=== PATIENT | male | born 1995 | race Caucasian/White ===

== ENCOUNTER → 2017-03-30 | Outpatient (CLI) | payer MEDICARE, OTHER ==
[2017-03-30 20:54] LABS: Gliadin AB IgA, Deaminated POSITIVE (NEGATIVE); Gliadin AB IgG, Deaminated POSITIVE (NEGATIVE); Gliadin AB IgG, Unit 67.8 U/mL; Tis Transglutaminase IgA Unit >250.0 AI; Tis Transglutaminase IgG Unit 0.9 U/mL
== END | disposition home or self-care (01) ==
LOC: LABWHC1 12:28
PROVIDERS: ATTEND Physician Assistant
DX: K90.0 Celiac disease (principal)
CPT/HCPCS: 36415; 83516

== ENCOUNTER 2017-06-19 07:20 | Emergency (ER) | payer MEDICARE, OTHER ==
[2017-06-19 07:26] VITALS: TEMP 97.6
[2017-06-19] MEDS ORDERED: ORPHENADRINE 30 MG/ML 2 ML VIAL IVP STA (07:53)
[2017-06-19] MEDS ORDERED: KETOROLAC 30 MG/ML 1 ML VIAL IVP STA (07:53)
--- NOTE | 2017-06-19 08:07 | ED ---
Fall HPI - General Chief Complaint: Fall Stated Complaint: Fell back/hip pain-[facility] Time Seen by Provider: 06/19/17 07:35 Source: patient Mode of arrival: wheelchair - History of Present Illness Initial Comments: This is a 22-year-old male with a benign history who slipped and fell at work around 6:30 AM this morning he states he landed on his left buttock area he complains of low back pain especially on the left side he states is 7/10 severity somewhat sharp in nature. He denies a loss of function however to his lower extremities no urinary or fecal incontinence. No prior back pain or injury. Complaint: fall - Related Data Previous Rx's Medication Instructions Recorded Cyclobenzaprine [Flexeril] 10 mg PO TID #14 tab 06/19/17 Ibuprofen 800 mg PO Q6HR PRN #20 tablet 06/19/17 Allergies Allergy/AdvReac Type Severity Reaction Status Date / Time No Known Allergies Allergy Verified 06/19/17 08:00 Review of Systems ROS Statement: Those systems with pertinent positive or pertinent negative responses have been documented in the HPI. ROS Other: All systems not noted in ROS Statement are negative. Past Medical History Past Medical History: No Reported History History of Any Multi-Drug Resistant Organisms: None Reported Past Surgical History: Orthopedic Surgery Additional Past Surgical History / Comment(s): rt knee surgery Past Psychological History: Anxiety, Depression Smoking Status: Never smoker Past Alcohol Use History: None Reported Past Drug Use History: None Reported General Exam - General Exam Comments Initial Comments: This is a well-developed well-nourished awake alert oriented 3 male Limitations: no limitations General appearance: alert, anxious, in distress Head exam: Present: atraumatic Eye exam: Present: normal appearance, PERRL, EOMI. Absent: scleral icterus, conjunctival injection, periorbital swelling ENT exam: Present: normal exam, mucous membranes moist Neck exam: Present: normal inspection. Absent: tenderness, meningismus, lymphadenopathy Respiratory exam: Present: normal lung sounds bilaterally. Absent: respiratory distress, wheezes, rales, rhonchi, stridor Cardiovascular Exam: Present: regular rate, normal rhythm, normal heart sounds. Absent: systolic murmur, diastolic murmur, rubs, gallop, clicks GI/Abdominal exam: Present: soft, normal bowel sounds. Absent: distended, tenderness, guarding, rebound, rigid Extremities exam: Present: normal inspection, full ROM Back exam: Present: normal inspection, tenderness, muscle spasm, paraspinal tenderness. Absent: full ROM, CVA tenderness (R), CVA tenderness (L), vertebral tenderness Neurological exam: Present: alert, oriented X3, CN II-XII intact Psychiatric exam: Present: normal affect, normal mood Skin exam: Present: warm, dry, intact, normal color. Absent: rash Course Vital Signs 06/19/17 07:24 Temperature 97.6 F Pulse Rate 83 Respiratory 20 Rate Blood Pressure 130/76 O2 Sat by Pulse 100 Oximetry Medical Decision Making - Medical Decision Making I did a long discussion with patient regarding findings he is getting some improvement thus far the patient will be placed on appropriate medication. Given O for work today he is to be on limited lifting for 2 days. He is follow- up with his doctor and return when necessary - Radiology Data Radiology results: report reviewed (I did review the imaging and reports no acute findings.), image reviewed Disposition Clinical Impression: Fall, Lumbar strain Disposition: HOME SELF-CARE Condition: Good Instructions: Low Back Strain (ED) Prescriptions: Cyclobenzaprine [Flexeril] 10 mg PO TID #14 tab Ibuprofen 800 mg PO Q6HR PRN #20 tablet PRN Reason: Pain Referrals: Katarina Osuna MD [Primary Care Provider] - 1-2 days
--- NOTE | 2017-06-19 08:37 | XR ---
Lumbosacral spine HISTORY: Trauma and pain 5 views of the lumbosacral spine correlated to prior exam 03/31/2013 The exam is stable. Bone mineralization, disc spaces and alignment are stable. No spondylolysis. IMPRESSION: No acute fracture or subluxation.
[2017-06-19 09:20] VITALS: BP 119/65; PULSE 75; RESP 16
== END 2017-06-19 09:19 | disposition home or self-care (01) ==
LOC: EC 07:20
DX: S39.012A Strain of muscle, fascia and tendon of lower back, initial encounter (principal); W01.0XXA Fall on same level from slipping, tripping and stumbling without subsequent striking against object, initial encounter; Y99.0 Civilian activity done for income or pay; Y93.89 Activity, other specified; Y92.69 Other specified industrial and construction area as the place of occurrence of the external cause
CPT/HCPCS: 72110; 99283; 96374; 96375; J2360; J1885

== ENCOUNTER → 2017-06-21 | Outpatient (CLI) | payer OTHER ==
--- NOTE | 2017-06-21 12:20 | XR ---
EXAMINATION TYPE: XR thoracic spine complete DATE OF EXAM: 06/21/2017 COMPARISON: 03/31/2013 HISTORY: 22-year-old male mid back pain since fall 2 days ago, contusion of back wall. TECHNIQUE: 3 views FINDINGS: 12 rib-bearing thoracic vertebral bodies. All pedicles are visualized. There is mild degenerative dis c interspace narrowing along the upper third thoracic spine. Small endplate Schmorl's node involving the superior endplate of the vertebral body, probably L1. This is unchanged. Vertebral body heights a re maintained and alignment is preserved. IMPRESSION: There is mild degenerative disc disease in the upper third thoracic spine. No vertebral compression c ollapse or malalignment.
== END ==
LOC: RADXRMAIN 12:00
PROVIDERS: ATTEND Emergency Medicine
DX: M51.34 Other intervertebral disc degeneration, thoracic region (principal)
CPT/HCPCS: 72072

== ENCOUNTER → 2017-07-03 | Outpatient (CLI) | payer MEDICARE, OTHER ==
[2017-07-03 11:16] LABS: ALT 45 U/L (21-72); AST 31 U/L (17-59); Albumin 4.8 g/dL (3.5-5.0); Alkaline Phosphatase 55 U/L (38-126); Anion Gap 10 mmol/L; Blood Urea Nitrogen 13 mg/dL (9-20); Calcium 9.7 mg/dL (8.4-10.2); Carbon Dioxide 26 mmol/L (22-30); Chloride 106 mmol/L (98-107); Glucose 95 mg/dL (74-99); Potassium 4.7 mmol/L (3.5-5.1); Sodium 142 mmol/L (137-145); Total Bilirubin 0.6 mg/dL (0.2-1.3); Total Protein 7.5 g/dL (6.3-8.2)
[2017-07-03 11:51] LABS: Basophils # (A) 0.1 k/uL (0-0.2); Basophils % (A) 1 %; Eosinophils # (A) 0.3 k/uL (0-0.7); Eosinophils % (A) 4 %; HCT 51.3 % (39.0-53.0); HGB 17.1 gm/dL (13.0-17.5); Lymphocytes # (A) 1.3 k/uL (1.0-4.8); Lymphocytes % (A) 18 %; MCHC 33.3 g/dL (31.0-37.0); MCV 90.4 fL (80.0-100.0); Mean Platelet Volume 8.5; Monocytes # (A) 0.5 k/uL (0-1.0); Monocytes % (A) 6 %; Neutrophils # (A) 5.2 k/uL (1.3-7.7); Neutrophils % (A) 70 %; Platelet Count 139 k/uL (150-450); RBC 5.68 m/uL (4.30-5.90); RDW 13.9 % (11.5-15.5); WBC 7.5 k/uL (3.8-10.6)
[2017-07-03 16:31] LABS: Gliadin AB IgA, Unit 37.7 U/mL
== END | disposition home or self-care (01) ==
LOC: LABWHC1 10:34
PROVIDERS: ATTEND Physician Assistant
DX: K90.0 Celiac disease (principal)
CPT/HCPCS: 36415; 80053; 83516; 85025

== ENCOUNTER → 2018-08-05 | Outpatient (CLI) | payer MEDICARE, OTHER ==
[2018-08-05 13:56] LABS: Basophils # (A) 0.1 k/uL (0-0.2); Basophils % (A) 1 %; Eosinophils # (A) 0.2 k/uL (0-0.7); Eosinophils % (A) 4 %; HCT 48.9 % (39.0-53.0); HGB 16.6 gm/dL (13.0-17.5); Lymphocytes # (A) 1.8 k/uL (1.0-4.8); Lymphocytes % (A) 27 %; MCH 30.5 pg (25.0-35.0); MCHC 33.9 g/dL (31.0-37.0); MCV 89.9 fL (80.0-100.0); Monocytes # (A) 0.3 k/uL (0-1.0); Monocytes % (A) 5 %; Neutrophils # (A) 4.1 k/uL (1.3-7.7); Neutrophils % (A) 62 %; Platelet Count 259 k/uL (150-450); RBC 5.44 m/uL (4.30-5.90); RDW 12.8 % (11.5-15.5); WBC 6.6 k/uL (3.8-10.6)
[2018-08-05 21:32] LABS: Gliadin AB IgA, Unit 17.5 U/mL
[2018-08-05 22:06] LABS: Albumin 4.9 g/dL (3.80-4.90); Albumin/Globulin Ratio 2.04 (1.60-3.17); Anion Gap 8.9 mmol/L (4.00-12.00); Calcium 9.8 mg/dL (8.7-10.3); Carbon Dioxide 25.1 mmol/L (21.6-31.8); Globulin 2.4 g/dL (1.6-3.3); Potassium 4.5 mmol/L (3.5-5.5); Total Bilirubin 0.7 mg/dL (0.3-1.2); Total Protein 7.3 g/dL (6.2-8.2)
== END | disposition home or self-care (01) ==
LOC: LABWHC1 12:56
PROVIDERS: ATTEND Physician Assistant
DX: K90.0 Celiac disease (principal)
CPT/HCPCS: 36415; 80053; 83516; 85025

== ENCOUNTER → 2018-11-04 | Outpatient (CLI) | payer MEDICARE, OTHER ==
[2018-11-04 11:27] LABS: Basophils # (A) 0.1 k/uL (0-0.2); Basophils % (A) 1 %; Eosinophils # (A) 0.3 k/uL (0-0.7); Eosinophils % (A) 4 %; HCT 55.2 % (39.0-53.0); HGB 18.5 gm/dL (13.0-17.5); Lymphocytes # (A) 1.6 k/uL (1.0-4.8); Lymphocytes % (A) 21 %; MCH 30.4 pg (25.0-35.0); MCHC 33.6 g/dL (31.0-37.0); MCV 90.5 fL (80.0-100.0); Monocytes # (A) 0.4 k/uL (0-1.0); Monocytes % (A) 6 %; Neutrophils # (A) 5.2 k/uL (1.3-7.7); Neutrophils % (A) 68 %; Platelet Count 192 k/uL (150-450); WBC 7.8 k/uL (3.8-10.6)
[2018-11-04 16:11] LABS: Albumin 3.6 g/dL (3.80-4.90); Albumin/Globulin Ratio 2.4 (1.60-3.17); Anion Gap 4.2 mmol/L (4.00-12.00); Calcium 8.2 mg/dL (8.7-10.3); Carbon Dioxide 29.8 mmol/L (21.6-31.8); Globulin 1.5 g/dL (1.6-3.3); Total Bilirubin 0.6 mg/dL (0.2-1.2); Total Protein 5.1 g/dL (6.2-8.2)
== END | disposition home or self-care (01) ==
LOC: LABWHC1 11:00
PROVIDERS: ATTEND Physician Assistant
DX: K90.0 Celiac disease (principal)
CPT/HCPCS: 36415; 80053; 83516; 85025

== ENCOUNTER → 2019-04-08 | Outpatient (CLI) | payer MEDICARE, OTHER ==
[2019-04-08 14:18] LABS: Basophils # (A) 0.1 k/uL (0-0.2); Basophils % (A) 1 %; Eosinophils # (A) 0.3 k/uL (0-0.7); Eosinophils % (A) 4 %; HCT 45.6 % (39.0-53.0); HGB 15.6 gm/dL (13.0-17.5); Lymphocytes # (A) 1.4 k/uL (1.0-4.8); Lymphocytes % (A) 23 %; MCH 30.7 pg (25.0-35.0); MCHC 34.1 g/dL (31.0-37.0); Mean Platelet Volume 6.1; Monocytes # (A) 0.3 k/uL (0-1.0); Monocytes % (A) 6 %; Neutrophils % (A) 65 %; Platelet Count 207 k/uL (150-450); RBC 5.07 m/uL (4.30-5.90); RDW 12.3 % (11.5-15.5); WBC 6.2 k/uL (3.8-10.6)
[2019-04-08 18:50] LABS: T3, Uptake 30 % (23-37)
[2019-04-08 18:57] LABS: African American GFR (CKD) 143.9 (60.0-200.0); Albumin 4.8 g/dL (3.80-4.90); Albumin/Globulin Ratio 2.4 (1.60-3.17); Anion Gap 5.4 mmol/L (4.00-12.00); BUN/Creat Ratio 13.75 Ratio (12.00-20.00); Bilirubin, Conjugated 0.2 mg/dL (0.20-0.40); Bilirubin,Unconjugated 0.4 mg/dL; Calcium 9.8 mg/dL (8.7-10.3); Carbon Dioxide 28.6 mmol/L (21.6-31.8); Potassium 4.1 mmol/L (3.5-5.5); Total Bilirubin 0.6 mg/dL (0.3-1.2); Total Protein 6.8 g/dL (6.2-8.2)
[2019-04-08 20:02] LABS: Gliadin AB IgA, Deaminated POSITIVE (NEGATIVE)
[2019-04-08 20:03] LABS: Gliadin AB IgG, Deaminated NEGATIVE (NEGATIVE)
[2019-04-08 20:54] LABS: Hemoglobin A1C 4.8 % (4.0-6.0)
== END | disposition home or self-care (01) ==
LOC: LABWHC1 13:16
PROVIDERS: ATTEND Clinical Nurse Specialist Psychiatric/Mental Health
DX: K90.0 Celiac disease (principal); F32.9 Major depressive disorder, single episode, unspecified
CPT/HCPCS: 36415; 80053; 82248; 82306; 83036; 83516; 84439; 84443; 84479; 85025

== ENCOUNTER → 2020-04-23 | Outpatient (CLI) | payer MEDICARE, OTHER ==
[2020-04-23 14:51] LABS: Basophils # (A) 0.1 k/uL (0-0.2); Basophils % (A) 1 %; Eosinophils # (A) 0.2 k/uL (0-0.7); Eosinophils % (A) 3 %; HCT 50.9 % (39.0-53.0); HGB 16.8 gm/dL (13.0-17.5); Lymphocytes # (A) 1.7 k/uL (1.0-4.8); Lymphocytes % (A) 26 %; MCH 30.8 pg (25.0-35.0); MCV 93.3 fL (80.0-100.0); Monocytes # (A) 0.4 k/uL (0-1.0); Monocytes % (A) 6 %; Neutrophils # (A) 4.1 k/uL (1.3-7.7); Neutrophils % (A) 62 %; Platelet Count 215 k/uL (150-450); RBC 5.45 m/uL (4.30-5.90); RDW 12.2 % (11.5-15.5); WBC 6.7 k/uL (3.8-10.6)
[2020-04-23 20:04] LABS: African American GFR (CKD) 136.1 (60.0-200.0); Albumin 4.8 g/dL (3.80-4.90); Anion Gap 6.9 mmol/L (4.00-12.00); BUN/Creat Ratio 11.11 Ratio (12.00-20.00); Calcium 9.7 mg/dL (8.7-10.3); Carbon Dioxide 26.1 mmol/L (21.6-31.8); Globulin 2.4 g/dL (1.6-3.3); Non-African American GFR(CKD) 117.5 (60.0-200.0); Potassium 4.6 mmol/L (3.5-5.5); Total Bilirubin 0.5 mg/dL (0.2-1.2); Total Protein 7.2 g/dL (6.2-8.2)
[2020-04-23 20:45] LABS: Gliadin AB IgA, Deaminated POSITIVE (NEGATIVE); Gliadin AB IgA, Unit 82.1 U/mL; Gliadin AB IgG, Deaminated NEGATIVE (NEGATIVE)
== END | disposition home or self-care (01) ==
LOC: LABWHC1 13:34
PROVIDERS: ATTEND Internal Medicine Gastroenterology
DX: K90.0 Celiac disease (principal)
CPT/HCPCS: 36415; 80053; 83516; 85025

== ENCOUNTER → 2020-08-17 | Outpatient (CLI) | payer MEDICARE, OTHER ==
[2020-08-17 19:19] LABS: Basophils # (A) 0.06 X 10*3/uL (0.00-0.10); Basophils % (A) 0.9 %; Eosinophils # (A) 0.16 X 10*3/uL (0.04-0.35); Eosinophils % (A) 2.5 %; HCT 47.3 % (39.6-50.0); Lymphocytes # (A) 1.61 X 10*3/uL (0.90-5.00); Lymphocytes % (A) 24.8 %; MCH 30.6 pg (27.0-32.0); MCHC 33.8 g/dL (32.0-37.0); MCV 90.4 fL (80.0-97.0); Mean Platelet Volume 10.6 fL (9.5-12.2); Monocytes # (A) 0.57 X 10*3/uL (0.20-1.00); Monocytes % (A) 8.8 %; Neutrophils # (A) 4.07 X 10*3/uL (1.80-7.70); Neutrophils % (A) 62.8 %; Platelet Count 210 X 10*3/uL (140-440); RBC 5.23 X 10*6/uL (4.40-5.60); RDW 12.4 % (11.5-14.5); WBC 6.48 X 10*3/uL (4.50-10.00)
[2020-08-17 20:47] LABS: African American GFR (CKD) 136.1 (60.0-200.0); Albumin 4.5 g/dL (3.80-4.90); Albumin/Globulin Ratio 1.61 (1.60-3.17); Anion Gap 8.2 mmol/L (4.00-12.00); BUN/Creat Ratio 14.44 Ratio (12.00-20.00); Calcium 9.8 mg/dL (8.7-10.3); Carbon Dioxide 25.8 mmol/L (21.6-31.8); Globulin 2.8 g/dL (1.6-3.3); Non-African American GFR(CKD) 117.5 (60.0-200.0); Potassium 4.2 mmol/L (3.5-5.5); Total Bilirubin 0.7 mg/dL (0.3-1.2); Total Protein 7.3 g/dL (6.2-8.2)
[2020-08-18 15:17] LABS: Gliadin AB IgA, Deaminated POSITIVE (NEGATIVE); Gliadin AB IgA, Unit 63.9 U/mL
[2020-08-18 16:56] LABS: Gliadin AB IgG, Deaminated NEGATIVE (NEGATIVE)
== END | disposition home or self-care (01) ==
LOC: LABWHC1 11:13
PROVIDERS: ATTEND Physician Assistant
DX: K90.0 Celiac disease (principal)
CPT/HCPCS: 36415; 80053; 83516; 85025

== ENCOUNTER → 2023-02-08 | Outpatient (CLI) | payer MEDICARE, OTHER ==
--- NOTE | 2023-02-08 14:29 | US ---
EXAMINATION TYPE: US scrotum with doppler. Grayscale and color Doppler Duplex imaging performed of jeison bush scrotum. DATE OF EXAM: 02/08/2023 COMPARISON: NONE CLINICAL INDICATION: Male, 27 years old with history of R10.30 LOWER ABDOMINAL PAIN, UNSPECIFIED; Pt states pain in testicles, more on right side EXAM MEASUREMENTS: TESTICLES: Right Testicle: 4.5 x 2.1 x 3.3 cm Left Testicle: 4.4 x 2.1 x 2.3 cm EPIDIDYMIS HEAD: Right Epididymis: 1.2 cm Left Epididymis: 1.2 cm Doppler performed to assess for testicular vascularity; good bilateral color flow and waveforms are s een. There may be minimal asymmetric increased right testicular flow. There is no evidence of testi cular torsion. Presence of hydroceles: No Presence of varicoceles: No Microcalcifications bilaterally, otherwise no other abnormality visualized at this time Results called to Dr. Bray at time of exam IMPRESSION: 1. Mild asymmetric increased vascular flow on the right correlate for epididymoorchitis 2. Appropriate arterial and venous spectral waveforms to the testes. 3. No evidence for intratesticular mass.
== END | disposition home or self-care (01) ==
LOC: RADUSWWP 13:38
PROVIDERS: ATTEND Family Medicine
DX: N50.811 Right testicular pain (principal); R10.30 Lower abdominal pain, unspecified
CPT/HCPCS: 76870; 93975

== ENCOUNTER → 2024-03-13 | Outpatient (CLI) | payer MEDICARE, OTHER ==
[2024-03-13 18:34] LABS: Basophils # (A) 0.06 X 10*3/uL (0.00-0.10); Eosinophils # (A) 0.16 X 10*3/uL (0.04-0.35); Eosinophils % (A) 2.6 %; HCT 45.4 % (39.6-50.0); HGB 15.3 g/dL (13.0-17.0); Lymphocytes # (A) 1.68 X 10*3/uL (0.90-5.00); Lymphocytes % (A) 27.2 %; MCH 30.7 pg (27.0-32.0); MCHC 33.7 g/dL (32.0-37.0); MCV 91.2 FL (80.0-97.0); Mean Platelet Volume 10.6 FL (9.5-12.2); Monocytes # (A) 0.47 X 10*3/uL (0.20-1.00); Monocytes % (A) 7.6 %; NRBC Per 100 WBC 0 X 10*3/uL (0.00-0.01); Neutrophils % (A) 61.4 %; Platelet Count 200 X 10*3/uL (140-440); RBC 4.98 X 10*6/uL (4.40-5.60); WBC 6.18 X 10*3/uL (4.50-10.00)
[2024-03-13 18:39] LABS: ALT 22 U/L (10-49); AST 25 U/L (14-35); Albumin 4.7 g/dL (3.8-4.9); Albumin/Globulin Ratio 1.81 Ratio (1.60-3.17); Alkaline Phosphatase 69 U/L (41-126); BUN/Creat Ratio 14.43 Ratio (12.00-20.00); Blood Urea Nitrogen 10.1 mg/dL (9.0-27.0); Calcium 9.5 mg/dL (8.7-10.3); Carbon Dioxide 24.4 mmol/L (21.6-31.8); Chloride 104 mmol/L (96-109); Globulin 2.6 g/dL (1.6-3.3); Glucose 93 mg/dL (70-110); Potassium 4.3 mmol/L (3.5-5.5); Sodium 140 mmol/L (135-145); Total Bilirubin 0.7 mg/dL (0.3-1.2); Total Protein 7.3 g/dL (6.2-8.2)
[2024-03-13 21:12] LABS: Gliadin AB IgA, Deaminated POSITIVE; Gliadin AB IgA, Unit 32.6 U/mL; Gliadin AB IgG, Deaminated Negative (Negative); Gliadin AB IgG, Unit 1.7 U/mL
== END | disposition home or self-care (01) ==
LOC: LABWHC1 14:04
PROVIDERS: ATTEND Physician Assistant
DX: K90.0 Celiac disease (principal)
CPT/HCPCS: 36415; 80053; 83516; 85025

== ENCOUNTER 2024-06-10 04:22 | Inpatient (IN) | payer MEDICARE, MEDICAID ==
--- NOTE | 2024-06-10 04:30 | ED ---
General Adult HPI - General Stated complaint: Petition Time Seen by Provider: 06/10/24 04:28 - History of Present Illness Initial comments: Patient is a 29-year-old gentleman PMH cognitive delay, presenting via PD today after being [place] a bridge with a knife threatening to harm himself. History initially limited as patient unwilling to answer questions regarding history. PD state they were called by patient's parents after patient sent them concerning texts. Patient was found under a bridge, waving a knife around and threatening to kill himself. One officer was able to deescalate the situation and place the patient in handcuffs for transport to the ED. Additional history later provided by patient's father who arrived at bedside. He states the patient and their family have been going through alot of stressful life events recently. Patient's 5 y/o nephew is currently in critcal care in [facility], his father has had ongoing treatment for facial cancer, and the patient attends the majority of his father talked departments with him, patient's girlfriend had just broken up with him which was what seemed to prompt patient's actions this evening. He has sent his father text messages making comments like "I love you, you do not need to come looking for me" which is what prompted parents to call police. Patient had one similar episode as a teenager requiring hospitalization. He does not take any medications every day. Patient denies any physical complaints at this time. - Related Data Home Medications Medication Instructions Recorded Confirmed No Known Home Medications 06/10/24 06/10/24 Allergies Allergy/AdvReac Type Severity Reaction Status Date / Time No Known Allergies Allergy Verified 06/10/24 07:38 Review of Systems ROS Statement: Those systems with pertinent positive or pertinent negative responses have been documented in the HPI. ROS Other: All systems not noted in ROS Statement are negative. Limitations: ROS unobtainable due to patients medical condition (patient declined to answer most questions) Past Medical History Past Medical History: No Reported History History of Any Multi-Drug Resistant Organisms: None Reported Past Surgical History: Orthopedic Surgery Additional Past Surgical History / Comment(s): rt knee surgery Past Psychological History: Anxiety, Depression Past Alcohol Use History: None Reported Past Drug Use History: None Reported General Exam - General Exam Comments Initial Comments: PE: CONSTITUTIONAL: No apparent distress, well appearing, making poor eye contact, looking down at floor, handcuffed SKIN: Warm, dry, no jaundice, hives or petechiae EYES: Pupils are equally round, extraocular movements intact without nystagmus, clear conjunctiva, non-icteric sclera HENT: Normocephalic, atraumatic NECK: , Full range of motion, normal appearance PULMONARY: Clear to auscultation without wheezes, rhonchi, or rales, normal excursion, no accessory muscle use and no stridor CARDIOVASCULAR: Regular rate, rhythm, normal S1 and S2. No appreciated murmurs, rubs or gallops. GASTROINTESTINAL: Soft, active bowel sounds throughout, non-tender, non- distended, no palpable masses, no rebound or guarding. No hepatosplenomegaly MUSCULOSKELETAL: Extremities have no gross deformity, no edema, redness, or swelling NEUROLOGIC:_a/o x 3, GCS 15, normal mentation and speech. Moves all extremities x 4 without motor or sensory deficit PSYCHIATRIC: Withdrawn, depressed mood and angry affect, thought process is difficult to assess, as patient refusing to answer most questions, but appears clear and linear when talking with PD Course Vital Signs 06/10/24 05:18 Temperature 98.5 F Pulse Rate 100 Respiratory 18 Rate Blood Pressure 128/82 O2 Sat by Pulse 98 Oximetry Medical Decision Making - Medical Decision Making Was pt. sent in by a medical professional or institution (, PA, THEATRE ARTS PROFESSOR, urgent care, hospital, or prison...) When possible be specific @Patient brought in by police Did you speak to anyone other than the patient for history (EMS, parent, family, police, friend...)? What history was obtained from this source @Spoke with police and patient's parents who assisted in providing history, as noted in HPI Did you review nursing and triage notes (agree or disagree)? Why? @ -I reviewed nursing and triage notes of note triage note states that patient was threatening to cut his neck however per PD they state patient was starting to cut his legs and not holding a knife to his neck, he was combative for PD and route to the ER and handcuffed, on arrival here sitting calmly in handcuffs however when approached did kick out at RN and not allow vitals to be taken Were old charts reviewed (outside hosp., previous admission, EMS record, old EKG, old radiological studies, urgent care reports/EKG's, prison records)? Report findings @Medical records reviewed- Per ED visit note review patient has been to the emergency department before in September 2014 for suicidal thoughts documented have a history of mood disorder during that visit Differential Diagnosis (chest pain, altered mental status, abdominal pain women, abdominal pain men, vaginal bleeding, weakness, fever, dyspnea, syncope, headache, dizziness, GI bleed, back pain, seizure, CVA, palpatations, mental health, musculoskeletal)? @Differential Mental Health Depression, anxiety, bipolar, psychosis, schizophrenia, borderline personality, situational depression, adjustment disorder, behavioral disorder, brain tumor, malingering, substance abuse.... This is not meant to be all-inclusive list X-rays interpreted by me (1pt min.). @ -None done CT interpreted by me (1pt min.). @ -None done U/S interpreted by me (1pt. min.). @ -None done What testing was considered but not performed or refused? (CT, X-rays, U/S, labs)? Why? @ -None What meds were considered but not given or refused? Why? @Oral Ativan and IM Ativan and Zyprexa were considered as patient had kicked out at RN when attempting to obtain vital signs, when I reassessed the patient and using verbal de-escalation we were able to remove patient's handcuffs and have his father come to bedside, with this patient was no longer combative and did not require oral or IM medications. Did you discuss the management of the patient with other professionals (professionals i.e. , PA, THEATRE [employer]S PROFESSOR, lab, RT, psych nurse, social human services assistants, production assembly operator, teacher, sheriffs officer, lining caser)? Give summary @Case was discussed with EPS RN, Alina who recommended inpatient psychiatric admission Was smoking cessation discussed for >3mins.? @ -No Was critical care preformed (if so, how long)? @ -No Were there social determinants of health that impacted care today? How? (Homelessness, low income, unemployed, alcoholism, drug addiction, transportation, low edu. Level, literacy, decrease access to med. care, [facility], rehab)? @Cognitive delay Was there de-escalation of care discussed even if they declined (Discuss DNR or withdrawal of care, Hospice)? @ -No What co-morbidities impacted this encounter? (DM, HTN, Smoking, COPD, CAD, Cancer, CVA, ARF, Chemo, Hep., AIDS, mental health diagnosis, sleep apnea, morbid obesity)? @ Developmental delay, Mood disorder Was patient admitted / discharged? Hospital course, mention meds given and route, prescriptions, significant lab abnormalities, going to OR and other pertinent info. @Admitted to Psychiatric Services- Patient is a 29 y/o gentleman, presenting today via PD for being found with a knife and making suicidal statements. Arrives handcuffed by PD, patient unwillin g to make eye contact or answer questions on my initial assessment. He was noted to be combative with PD prior to arrival. I discussed with the patient that we would be able to have his handcuffs removed if he were to be calm and cooperative. RN attempted to take vitals and patient kicked out at her. IM ativan and zyprexa were ordered, however I was able to verbally de-escalate patient. Handcuffs were removed and patient's father arrived at bedside, which helped to continue to keep patient calm. Further hx was obtained from pt's father. Pt then cooperative with exam. Vitals were able to be obtained. Patient willing to undergo EPS evaluation. Petitioned by family. 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 Patient evaluated by EPS and accepted for transfer to our inpatient psych unit. EPS RN did request a clinical certification be filed. Clinical CERT filed by myself. Updated patient and family plan of care. They are agreeable with plan. Patient admitted in stable condition to psychiatric floor. Undiagnosed new problem with uncertain prognosis? @ -No Drug Therapy requiring intensive monitoring for toxicity (Heparin, Nitro, Insulin, Cardizem)? @ -No Were any procedures done? @ -No Diagnosis/symptom? @ -Depression with suicidal ideation Acute, or Chronic, or Acute on Chronic? @ -Acute Uncomplicated (without systemic symptoms) or Complicated (systemic symptoms)? @ -Complicated Side effects of treatment? @ -No Exacerbation, Progression, or Severe Exacerbation? @ -No Poses a threat to life or bodily function? How? (Chest pain, [place], [place], pneumonia, PE, COPD, DKA, ARF, appy, cholecystitis, CVA, Diverticulitis, Homicidal, Suicidal, threat to staff... and all critical care pts) @Yes, if allowed to continue patient very likely could have harmed himself or others - Lab Data Lab Results 06/10/24 06/10/24 Range/Units 06:14 06:38 Urine Opiates Screen Not Detected (NotDetected) Ur Oxycodone Screen Not Detected (NotDetected) Urine Methadone Screen Not Detected (NotDetected) Ur Barbiturates Screen Not Detected (NotDetected) U Tricyclic Antidepress Not Detected (NotDetected) Ur Phencyclidine Scrn Not Detected (NotDetected) Ur Amphetamines Screen Not Detected (NotDetected) U Methamphetamines Scrn Not Detected (NotDetected) U Benzodiazepines Scrn Not Detected (NotDetected) Urine Cocaine Screen Not Detected (NotDetected) U Marijuana (THC) Screen Not Detected (NotDetected) SARS-CoV-2 (PCR) Not Detected (Not Detectd) Disposition Clinical Impression: Depression with suicidal ideation Disposition: TRANSFER TO PSYCH HOSP/UNIT Condition: Stable Referrals: Katarina Osuna MD [Primary Care Provider] - 1-2 days
[2024-06-10] MEDS: LORazepam 1 MG TAB PO STA (05:07)
[2024-06-10 06:47] LABS: Amphetamine Screen,Urine Not Detected (NotDetected); Barbiturate Screen,Urine Not Detected (NotDetected); Benzodiazepines Screen,Urine Not Detected (NotDetected); Cocaine Screen,Urine Not Detected (NotDetected); Methadone Screen, Urine Not Detected (NotDetected); Opiate Screen,Urine Not Detected (NotDetected); Oxycodone Screen, Urine Not Detected (NotDetected); Phencyclidine Screen,Urine Not Detected (NotDetected); Tricyclic Antidepressant,Urine Not Detected (NotDetected); Urn Cannabinoid Scrn Not Detected (NotDetected)
[2024-06-10] MEDS ORDERED: IBUPROFEN 600 MG TAB PO PRN (09:30)
[2024-06-10] MEDS ORDERED: MAG HYDROX/AL HYDROX/SIMETH 355 ML BOTTLE PO PRN (09:30)
[2024-06-10] MEDS ORDERED: MAGNESIUM HYDROXIDE 2,400 MG/30 ML CUP PO PRN (09:30)
[2024-06-10] MEDS ORDERED: haloperidoL 5 MG TAB PO PRN (09:30)
[2024-06-10] MEDS ORDERED: ACETAMINOPHEN TAB 325 MG TAB PO PRN (09:30)
[2024-06-10] MEDS: OLANZapine 10 MG VIAL IM STA (10:48)
[2024-06-10] MEDS: LORazepam 2 MG/ML INJ IM STA (10:49)
[2024-06-10] MEDS: NICOTINE 14MG/24HR PATCH TRANSDERM SCH (10:50)
[2024-06-10 15:34] LABS: Appearance,Urine Turbid (Clear); Bacteria,Urine Moderate /hpf; Bilirubin,Urine Negative (Negative); Blood,Urine Negative (Negative); Budding Yeast,Urine Few /hpf; Calcium Oxalate Crystals,Urine Few /hpf; Color,Urine Yellow; Glucose,Urine (UA) Negative (Negative); Ketones,Urine Negative (Negative); Leukocyte Esterase,Urine Negative (Negative); Mucus,Urine Many /hpf; Nitrite,Urine Negative (Negative); PH, Urine 5.5 (5.0-8.0); Protein,Urine Negative (Negative); RBC,Urine 2 /hpf (0-5); Specific Gravity,Urine 1.025 (1.001-1.035); Urobilinogen,Urine <2.0 mg/dL (<2.0)
[2024-06-10] MEDS: FLUoxetine HCL 10 MG CAP PO SCH (17:37)
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
[2024-06-10] MEDS: MELATONIN 5 MG TABLET PO SCH (21:23)
[2024-06-11 08:19] LABS: Basophils # (A) 0.1 k/uL (0-0.2); Basophils % (A) 1 %; Eosinophils # (A) 0.2 k/uL (0-0.7); Eosinophils % (A) 3 %; HCT 47.1 % (39.0-53.0); HGB 15.8 gm/dL (13.0-17.5); Lymphocytes # (A) 2.4 k/uL (1.0-4.8); Lymphocytes % (A) 34 %; MCH 30.8 pg (25.0-35.0); MCHC 33.5 g/dL (31.0-37.0); Mean Platelet Volume 7.7; Monocytes # (A) 0.4 k/uL (0-1.0); Monocytes % (A) 6 %; Neutrophils # (A) 3.8 k/uL (1.3-7.7); Neutrophils % (A) 54 %; Platelet Count 192 k/uL (150-450); RBC 5.12 m/uL (4.30-5.90); RDW 12.5 % (11.5-15.5)
[2024-06-11 08:47] LABS: ALT 24 U/L (4-49); AST 27 U/L (17-59); African American GFR (CKD) >90 (>60 ml/min/1.73 sqM); Albumin 4.6 g/dL (3.5-5.0); Alkaline Phosphatase 54 U/L (38-126); Anion Gap 5 mmol/L; Bilirubin,Unconjugated 0.9 mg/dL (0.0-1.1); Blood Urea Nitrogen 15 mg/dL (9-20); Calcium 9.2 mg/dL (8.4-10.2); Carbon Dioxide 28 mmol/L (22-30); Chloride 105 mmol/L (98-107); Glucose 88 mg/dL (74-99); Non-African American GFR(CKD) >90 (>60 ml/min/1.73 sqM); Potassium 4.3 mmol/L (3.5-5.1); Sodium 138 mmol/L (137-145); Total Bilirubin 0.9 mg/dL (0.2-1.3)
--- NOTE | 2024-06-11 09:42 | P.MDCNMH ---
History of Present Illness H&P Date: 06/10/24 This is a 29-year-old male who presented to the emergency department with police on petition with concerns of suicidal ideations and was texting comments that were concerning to parents and police were contacted. Patient does follow with Dr. Jose Chung in the outpatient setting with a past medical history of anxiety and depression. Patient voluntarily admitted to [facility] for further psychiatric evaluation and care. Patient has been cooperative and instructed patient to continue with medication compliance and group therapy sessions. On exam patient denies any chest pain or shortness of breath. Patient is afebrile and denies any recent sicknesses or sick contacts. Patient reports has been undergoing a lot of stress with multiple family situations and was having increasing thoughts of suicide. REVIEW OF SYSTEMS: CONSTITUTIONAL: No fever, no malaise, no fatigue. HEENT: No recent visual problems or hearing problems. Denied any sore throat. CARDIOVASCULAR: No chest pain, orthopnea, PND, no palpitations, no syncope. PULMONARY: No shortness of breath, no cough, no hemoptysis. GASTROINTESTINAL: No diarrhea, no nausea, no vomiting, no abdominal pain. NEUROLOGICAL: No headaches, no weakness, no numbness. HEMATOLOGICAL: Denies any bleeding or petechiae. GENITOURINARY: Denies any burning micturition, frequency, or urgency. MUSCULOSKELETAL/RHEUMATOLOGICAL: Denies any joint pain, swelling, or any muscle pain. ENDOCRINE: Denies any polyuria or polydipsia. The rest of the 14-point review of systems is negative. PHYSICAL EXAMINATION: GENERAL: The patient is alert and oriented x3, not in any acute distress. Well developed, well nourished. HEENT: Pupils are round and equally reacting to light. EOMI. No scleral icterus. No conjunctival pallor. Normocephalic, atraumatic. No pharyngeal erythema. No thyromegaly. CARDIOVASCULAR: S1 and S2 present. No murmurs, rubs, or gallops. PULMONARY: Chest is clear to auscultation, no wheezing or crackles. ABDOMEN: Soft, nontender, nondistended, normoactive bowel sounds. No palpable organomegaly. MUSCULOSKELETAL: No joint swelling or deformity. EXTREMITIES: No cyanosis, clubbing, or pedal edema. NEUROLOGICAL: Gross neurological examination did not reveal any focal deficits. SKIN: No rashes. Assessment: Suicidal ideation History of anxiety/depression Low TSH, will add T3 free and T4 free History of cognitive delay Full code Plan: Patient was initially petitioned by family with police for suicidal ideation and increased depression Patient voluntarily admitted to [facility] for further psychiatric evaluation and care Recommend outpatient follow-up with primary care provider Dr. Jose Chung on discharge as well as [facility] outpatient TSH was low and recommend T3 free and T4 free. Will add to labs. Thank you kindly for this consultation. Please do not hesitate to contact us with questions or concerns The impression and plan of care has been dictated by Nury Wesley, Nurse Practitioner as directed. Dr. Cynthia MD I have performed a history and examination and MDM of this patient, discussed the same with the dictator, and agree with the dictator's assessment and plan as written ,documented as a scribe. Based on total visit time, I have performed more than 50% of the visit. Past Medical History Past Medical History: No Reported History History of Any Multi-Drug Resistant Organisms: None Reported Past Surgical History: Orthopedic Surgery Additional Past Surgical History / Comment(s): rt knee surgery Past Psychological History: Anxiety, Depression Past Alcohol Use History: None Reported Past Drug Use History: None Reported Medications and Allergies Home Medications Medication Instructions Recorded Confirmed Type No Known Home Medications 06/10/24 06/10/24 History Allergies Allergy/AdvReac Type Severity Reaction Status Date / Time No Known Allergies Allergy Verified 06/10/24 07:38 Physical Exam Vitals: Vital Signs Temp Pulse Resp BP Pulse Ox 06/10/24 09:53 98 18 126/77 99 06/10/24 05:18 98.5 F 100 18 128/82 98 Intake and Output 06/09/24 06/10/24 06/10/24 22:59 06:59 14:59 Other: Weight 63.503 kg Cranial Nerve Examination - Cranial Nerves Cranial Nerve I- Olfactory: Intact Cranial Nerve II- Optic: Intact Cranial Nerve III- Oculomotor: Intact Cranial Nerve IV- Trochlear: Intact Cranial Nerve V- Trigeminal: Intact Cranial Nerve - Abducens: Intact Cranial Nerve VII- Facial: Intact Cranial Nerve VIII- Auditory: Intact Cranial Nerve IX- Glossopharyngeal: Intact Cranial Nerve X- Vagus: Intact Cranial Nerve XI- Accessory: Intact Cranial Nerve XII- Hypoglossal: Intact Results CBC & Chem 7: 06/11/24 07:56 12/18/24 07:56 Assessment and Plan Time with Patient: Less than 30
[2024-06-11 15:42] LABS: Chol/HDL Ratio 3.73 Ratio; LDL Cholesterol,Calculated 124.9 mg/dL (0.0-131.0); VLDL Calculation 10.54 mg/dL (5.00-40.00)
--- NOTE | 2024-06-11 15:45 | P.PN ---
Progress Note - Text Progress Note Date: 06/11/24 Dictation was produced using [employer] dictation software. Please excuse any grammatical, word or spelling errors. Interval history: Pt states that he is feeling well overall. Reported that he is getting better, he states that his suicidal thoughts are very little today, he denied any intention or plan, reported depression and anxiety are at moderate side, rated both at 3-4/10. He reported that he slept well over night, and has been eating well. He states that he will talk with his father today. He states that when he reflect back on what he did, he states that " I should handle it a little different." He states that he is compliant with his mediations, denied any side effects. States that he has been getting along well with everyone in the unit, denied any aggression or agitation. Agreed with our treatment plan and reported he feels fine with increasing the Prozac. He reported that he is looking forward to have a therapist on outpatient basis since he will be able to speak about has stressors that led to this hospitalization. Reported that he still needs some time to make sure his suicidal thoughts are gone prior to leaving. States that he is working on his coping and communication skills. MENTAL STATUS EXAM: General Appearance: Patient appears to be stated age, is alert, directable, and attempts to cooperate. Patient appears to have fair hygiene and grooming. He has short brown hair, wears reading eyeglasses. Behavior: Patient is seated without any agitated behavior he was calm, cooperative and forthcoming during the interview. Speech: Patient's speech is fluent and nonpressured. Mood/Affect: Patient reports their mood is a little better, affect is congruent and constricted. Suicidality/Homicidality: Patient denies having any homicidal ideation intent or plan. He reported he still have some fleeting suicidal ideations however denied any current intent or plan Perceptions: Patient denies any visual hallucinations and denies any auditory hallucinations Though content/process: There is no evidence of any delusional thought content and thought process is linear and goal-directed. Memory and concentration: AOX3, grossly intact for the purposes of this session. Can spell "WORLD" backwards Judgment and insight: poor IMPRESSIONS: -Major depressive disorder, recurrent, moderate to severe with suicidal ideation -Rule out adjustment disorder, with depressed and anxious mood -Generalized anxiety disorder -PTSD -history of cognitive delay PLAN: -Patient is admitted with a petition and clinical certification, he agreed to follow treatment recommendation and to take medication, will keep him under voluntary status to [facility] for stabilization of psychiatric symptoms and safety. -Medications : -Increase Prozac to 20 mg p.o. daily thing tomorrow morning -Continue melatonin 5 mg p.o. at bedtime -Ativan and Haldol PRN for agitation/aggression -Patient was informed of the risks, benefits and side effects of the medication and patient verbally consented to taking the medications. Patient signed med consent form and was placed in chart. -Internal Medicine consult to perform medical evaluation and physical. -NRT -not needed as patient does not smoke -SW on board for discharge planning. Encourage patient to participate in groups to work on coping skills.
[2024-06-12 00:04] LABS: T4, Free (Free Thyroxine) 1.08 ng/dL (0.80-1.80)
[2024-06-12] MEDS: FLUoxetine HCL 20 MG CAP PO SCH (13:23)
--- NOTE | 2024-06-12 17:05 | P.PN ---
Progress Note - Text Progress Note Date: 06/12/24 Dictation was produced using [employer] dictation software. Please excuse any grammatical, word or spelling errors. Interval history: Pt was in his room, laying in bed when asked to be interviewed today, he did not want to speak with the sheet writer, and reported that 'I don't feel like it", he states that he does not want to talk to anyone. Pt has been refusing his medications, and vitals. When asked about SI, and Hi, he reported that he has some fleeting SI, denied any HI. Pt refused to answer any questions, and covered his head. Per report pt mother visited yesterday and pt refused to speak with her. MENTAL STATUS EXAM: General Appearance: Patient appears to be stated age, is alert, npt red irectable, and uncooperative. Patient appears to have fair hygiene and grooming. He has short brown hair. Laying in bed, refused to speak with the sheet writer. Behavior: Patient is lying in bed, did not want to participate during the interview. Speech: Patient's speech is fluent and nonpressured. Mood/Affect: Patient reports their mood is a depressed, affect is congruent and constricted. Suicidality/Homicidality: Patient denies having any homicidal ideation intent or plan. He reported he still have some fleeting suicidal ideations however denied any current intent or plan Perceptions: Patient denies any visual hallucinations and denies any auditory hallucinations Though content/process: There is no evidence of any delusional thought content and thought process is linear and goal-directed. Memory and concentration: AOX3, grossly intact for the purposes of this session. Judgment and insight: poor IMPRESSIONS: -Major depressive disorder, recurrent, moderate to severe with suicidal ideation -Rule out adjustment disorder, with depressed and anxious mood -Generalized anxiety disorder -PTSD -history of cognitive delay PLAN: -Patient is admitted with a petition and clinical certification, he agreed to follow treatment recommendation and to take medication, will keep him under voluntary status to [facility] for stabilization of psychiatric symptoms and safety. Pt was refusing medication today, will encourage pt to take meds, may consider petition and cert if he continue to refuse meds. -Medications : -Continue Prozac 20 mg p.o. daily -Continue melatonin 5 mg p.o. at bedtime -Start Abilify 2.5 mg po hs -Ativan and Haldol PRN for agitation/aggression -Patient was informed of the risks, benefits and side effects of the medication and patient verbally consented to taking the medications. Patient signed med consent form and was placed in chart. -Internal Medicine consult to perform medical evaluation and physical. -NRT -not needed as patient does not smoke -SW on board for discharge planning. Encourage patient to participate in groups to work on coping skills.
[2024-06-12] MEDS: LORazepam 1 MG TAB PO PRN (17:48)
[2024-06-13] MEDS: ARIPiprazole 5 MG TAB PO SCH (00:09)
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
[2024-06-13] MEDS: LORazepam 2 MG/ML INJ IM PRN (22:15)
[2024-06-13] MEDS: HALOPERIDOL LACTATE 5 MG/ML 1 ML VIAL IM PRN (22:16)
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
--- NOTE | 2024-06-14 09:32 | CT ---
EXAMINATION TYPE: CT brain wo con DATE OF EXAM: 06/14/2024 9:14 AM COMPARISON: None. CLINICAL INDICATION: Male, 29 years old with history of Head trama, minor, normal mental status, Head trama, minor, normal mental status TECHNIQUE: Brain: Axial CT images of the brain were obtained with coronal and sagittal reformats created and rev iewed. Contrast used: None. Oral contrast used: None. CT DLP: 1012.70 mGycm, Automated exposure control for dose reduction was used. FINDINGS: Brain: Extra-axial spaces: No abnormal extra-axial fluid collections. Ventricular system: Within normal limits Cerebral parenchyma: No acute intraparenchymal hemorrhage or mass effect. The nunez-white junction is well differentiated. Cerebellum: Unremarkable. Mass effect: No evidence of midline shift. Intracranial vasculature: unremarkable Soft tissues: Normal. Calvarium/osseous structures: No depressed skull fracture. Paranasal sinuses and mastoid air cells: Mild scattered paranasal sinus disease. Visualized orbits: Orbital contents are intact. IMPRESSION: No acute intracranial process. [facility], , 06/14/2024 9:29 AM
--- NOTE | 2024-06-14 11:12 | P.PN ---
Progress Note - Text Progress Note Date: 06/14/24 Interval history: Patient was seen laying in his bed today and was directable and agreeable to speak with typewriter operator automatic. Patient was fairly concrete, poor insight and judgment. He had restraints yesterday for breaking his food tray and agitation. Denies any current depression or anxiety. Has been selective with medication that he is taking. Denies any problems with appetite. At this time patient denies any suicidal or homicidal ideations intent or plan. Denies any Auditory or visual hallucinations. Patient denies any side effects from the medications and has been compliant with meds. Mental status exam: General Appearance: Patient appears to be stated age is alert, directable, and cooperative. Behavior: No agitated behavior. Patient is calm and directable Speech: Patient's speech is fluent and nonpressured. [place] Mood/Affect: Mood is improving mildly, affect is congruent and constricted. Suicidality/Homicidality: Patient denies having any suicidal or homicidal ideation intent or plan. Perceptions: Patient denies any auditory or visual hallucinations. Though content/process: There is no evidence of any delusional thought content and thought process is linear and goal-directed. [place], poverty of content Memory and concentration: AOX3, grossly intact for the purposes of this session Judgment and insight: Poor Assessment/Plan: Continue with current diagnosis. Patient continues to meet criteria for inpatient psychiatric admission for symptom stabilization and safety. Patient will be maintained on current psychotropic medication regimen, discontinue Abilify and replace with Invega, discontinue Prozac. Monitor for medication compliance and for any psychotropic medication side effects. Will continue to monitor ongoing response to treatment. Encouraged participation in milieu.
[2024-06-14] MEDS ORDERED: traZODone HCL 50 MG TAB PO PRN (11:13)
[2024-06-14] MEDS: PALIPERIDONE 3 MG TAB.ER.24 PO SCH (11:40)
[2024-06-14] MEDS: SERTRALINE 50 MG TAB PO SCH (11:40)
[2024-06-15] MEDS ORDERED: ARIPiprazole 5 MG TAB PO SCH (09:00)
--- NOTE | 2024-06-15 11:15 | P.PN ---
Progress Note - Text Progress Note Date: 06/15/24 Interval history: Patient was seen laying in his bed today and was directable and agreeable to speak with headline writer. Patient claims that he is doing a bit better today. Claims that the medications have been helping. Has not needed any as needed's or restraints since yesterday. Patient was fairly concrete, poor insight and judgment. Denies any current depression or anxiety. Has been selective with medication that he is taking. Denies any problems with appetite. At this time patient denies any suicidal or homicidal ideations intent or plan. Denies any Auditory or visual hallucinations. Patient denies any side effects from the medications and has been compliant with meds. Mental status exam: General Appearance: Patient appears to be stated age is alert, directable, and cooperative. Behavior: No agitated behavior. Patient is calm and directable Speech: Patient's speech is fluent and nonpressured. [place], improving mildly Mood/Affect: Mood is improving mildly, affect is congruent and constricted. Suicidality/Homicidality: Patient denies having any suicidal or homicidal octavia ation intent or plan. Perceptions: Patient denies any auditory or visual hallucinations. Though content/process: There is no evidence of any delusional thought content and thought process is linear and goal-directed. [place], poverty of content, improving mildly Memory and concentration: AOX3, grossly intact for the purposes of this session Judgment and insight: Poor, improving mildly Assessment/Plan: Continue with current diagnosis. Patient continues to meet criteria for inpatient psychiatric admission for symptom stabilization and safety. Patient will be maintained on current psychotropic medication regimen. Monitor for medication compliance and for any psychotropic medication side effects. Will continue to monitor ongoing response to treatment. Encouraged participation in milieu.
--- NOTE | 2024-06-16 13:45 | P.PN ---
Progress Note - Text Progress Note Date: 06/16/24 Interval History: Patient was seen wandering the hallways and was directable and agreeable to sp katia with service writer in the office. He states doing well today. He states not recalling why he was placed in restraints over the weekend however he denied any pain or headache related to banging his head. He states sleeping well despite staff noting 2 hours overnight. He states having adverse effects from trazodone but was agreeable to starting Vistaril instead tonight for sleep. He denied any suicidal thoughts, stating last having them yesterday. At this time patient denies any homicidal ideations, intent or plan. Patient denies any auditory, visual hallucinations and denies any paranoia or delusions. Patient denies any side effects from the medications and has been compliant with meds. Mental Status Exam: General Appearance: Patient appears to be stated age is alert, directable, and c ooperative. Behavior: Patient is calmly seated without any agitated behavior. Speech: Patient's speech is fluent and nonpressured. Mood/Affect: Mood is improving mildly, affect is congruent and constricted. Suicidality/Homicidality: Patient denies having any suicidal or homicidal ideation intent or plan. Perceptions: Patient denies any visual hallucinations and denies any auditory hallucinations. Patient appears to be inappropriately laughing at times Though content/process: There is no evidence of any delusional thought content and thought process is linear and logical superficially. Memory and concentration: AOX3, grossly intact for the purposes of this session Judgment and insight: Improving mildly Assessment Major depressive disorder, recurrent, moderate Rule out adjustment disorder with depressed and anxious mood Generalized anxiety disorder PTSD History of cognitive delay Plan: -Patient continues to meet criteria for inpatient psychiatric admission for symptom stabilization and safety. Patient has signed adult voluntary form and medication consent and was placed in patient's chart. -Medications: Continue Zoloft 50 mg daily for depression/anxiety, increase melatonin to 10 mg at bedtime for insomnia, start Vistaril 50 mg at bedtime for insomnia and increase Invega to 6 mg daily tomorrow for mood stabilization -When necessary Ativan and Haldol for agitation/aggression. -Labs: Reviewed -SW on board for discharge planning. Encouraged the patient to participate in milieu. Anticipate discharge back home with parents later this week
[2024-06-16] MEDS: MELATONIN 5 MG TABLET PO SCH (20:31)
[2024-06-16] MEDS: hydrOXYzine pamoate 25 MG CAP PO SCH (20:31)
[2024-06-17 07:12] VITALS: RESP 16
[2024-06-17] MEDS: PALIPERIDONE 6 MG TAB.ER.24 PO SCH (09:21)
--- NOTE | 2024-06-17 10:14 | P.PN ---
Progress Note - Text Progress Note Date: 06/17/24 Interval History: Patient was seen laying in bed and was directable and agreeable to speak with contract technical writer in the room. He states sleeping better last night, roughly 9 hours and staff note corroborated this. He reports no issues or concerns however does report the environment being loud at times. He talked to his parents yesterday and said things are well between them. At this time patient denies any suicidal or homicidal ideations, intent or plan. Patient denies any auditory, visual hallucinations and denies any paranoia or delusions. Patient denies any side effects from the medications and has been compliant with meds. Spoke to patient's mother Anu who states patient sounds much better and she is hopeful that he returns home by the holidays to celebrate as she feels as though if he is here during the holidays it will destabilize him. She denied any firearms at home and is able to pick him up tomorrow. Mental Status Exam: General Appearance: Patient appears to be stated age is alert, directable, and cooperative. Behavior: Patient is calmly seated without any agitated behavior. Speech: Patient's speech is fluent and nonpressured. Mood/Affect: Mood is improving mildly, affect is congruent and constricted. Suicidality/Homicidality: Patient denies having any suicidal or homicidal ideation intent or plan. Perceptions: Patient denies any visual hallucinations and denies any auditory hallucinations Though content/process: There is no evidence of any delusional thought content and thought process is linear and logical. Memory and concentration: AOX3, grossly intact for the purposes of this session Judgment and insight: Improving mildly Assessment Major depressive disorder, recurrent, moderate Rule out bipolar disorder, current episode depressed Generalized anxiety disorder PTSD History of cognitive delay Plan: -Patient continues to meet criteria for inpatient psychiatric admission for symptom stabilization and safety. Patient has signed adult voluntary form and medication consent and was placed in patient's chart. -Medications: Continue Zoloft 50 mg daily for depression/anxiety, melatonin 10 mg at bedtime and Vistaril 50 mg at bedtime for insomnia, Invega increased to 6 mg daily today for mood stabilization -When necessary Ativan and Haldol for agitation/aggression. -Labs: Reviewed -SW on board for discharge planning. Encouraged the patient to participate in milieu. Anticipate discharge back home with parents tomorrow
[2024-06-18 07:04] VITALS: BP 135/87; PULSE 91; TEMP 97.8
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
== END 2024-06-18 09:54 | disposition home or self-care (01) | DRG 885 ==
LOC: EC 04:22 → 3MHU 09:23
PROVIDERS: ADMIT Psychiatry & Neurology Psychiatry; ATTEND Psychiatry & Neurology Psychiatry
DX: F33.1 Major depressive disorder, recurrent, moderate (principal); R45.851 Suicidal ideations; F41.1 Generalized anxiety disorder; F43.10 Post-traumatic stress disorder, unspecified; F90.9 Attention-deficit hyperactivity disorder, unspecified type; G47.00 Insomnia, unspecified; F88 Other disorders of psychological development; Z56.0 Unemployment, unspecified; Z79.899 Other long term (current) drug therapy; Z91.148 Patient's other noncompliance with medication regimen for other reason; Z20.822 Contact with and (suspected) exposure to COVID-19; Z78.1 Physical restraint status
CPT/HCPCS: 70450; 80053; 80061; 80306; 81001; 82075; 82248; 83036; 84439; 84443; 84481; 85025; 87635; 99285

== ENCOUNTER → 2024-09-08 | Outpatient (CLI) | payer MEDICARE, MEDICAID ==
[2024-09-08 20:42] LABS: Basophils # (A) 0.06 X 10*3/uL (0.00-0.10); Eosinophils # (A) 0.14 X 10*3/uL (0.04-0.35); Eosinophils % (A) 2.2 %; HCT 48.4 % (39.6-50.0); HGB 16.4 g/dL (13.0-17.0); Lymphocytes # (A) 1.81 X 10*3/uL (0.90-5.00); Lymphocytes % (A) 28.7 %; MCH 30.9 pg (27.0-32.0); MCHC 33.9 g/dL (32.0-37.0); MCV 91.1 FL (80.0-97.0); Mean Platelet Volume 11.1 FL (9.5-12.2); Monocytes # (A) 0.42 X 10*3/uL (0.20-1.00); Monocytes % (A) 6.7 %; NRBC Per 100 WBC 0 X 10*3/uL (0.00-0.01); Neutrophils # (A) 3.86 X 10*3/uL (1.80-7.70); Neutrophils % (A) 61.2 %; Platelet Count 196 X 10*3/uL (140-440); RBC 5.31 X 10*6/uL (4.40-5.60); RDW 12.1 % (11.5-14.5)
[2024-09-08 21:37] LABS: ALT 22 U/L (10-49); AST 26 U/L (14-35); Albumin 4.7 g/dL (3.8-4.9); Albumin/Globulin Ratio 1.81 Ratio (1.60-3.17); Alkaline Phosphatase 67 U/L (41-126); Blood Urea Nitrogen 9.6 mg/dL (9.0-27.0); Calcium 9.6 mg/dL (8.7-10.3); Chloride 105 mmol/L (96-109); Globulin 2.6 g/dL (1.6-3.3); Glucose 101 mg/dL (70-110); Potassium 4.6 mmol/L (3.5-5.5); Sodium 139 mmol/L (135-145); Total Bilirubin 0.5 mg/dL (0.3-1.2); Total Protein 7.3 g/dL (6.2-8.2)
[2024-09-08 21:56] LABS: Gliadin AB IgA, Deaminated Positive (Negative); Gliadin AB IgA, Unit 48.6 U/mL
[2024-09-08 21:58] LABS: Gliadin AB IgG, Deaminated Negative (Negative); Gliadin AB IgG, Unit 3.4 U/mL
== END | disposition home or self-care (01) ==
LOC: LABWHC1 12:59
PROVIDERS: ATTEND Internal Medicine Gastroenterology
DX: K90.0 Celiac disease (principal)
CPT/HCPCS: 36415; 80053; 83516; 85025

== ENCOUNTER 2024-12-23 08:40 | Inpatient (IN) | payer MEDICARE, MEDICAID ==
--- NOTE | 2024-12-23 08:47 | ED ---
General Adult HPI - General Stated complaint: Petition Time Seen by Provider: 12/23/24 08:40 Source: patient, RN notes reviewed, old records reviewed - History of Present Illness Initial comments: This is a 29-year-old male who is brought in by police and is very combative. Patient himself gives no history. Police state that they were called to the parents house in the patient just continued to escalate and then started thre atening to hurt himself and kill other people. At the time it did not appear that the patient had been drinking today but he may have been drinking last night. Patient was banging his head a bar in the patrol car he also was punching items with his hand at the house according to police. Police state that he has a cognitive ability of a third-grader according to the parents - Related Data Previous Rx's Medication Instructions Recorded Melatonin 10 mg PO HS 30 Days #60 tab 06/17/24 Paliperidone [Invega] 6 mg PO DAILY 30 Days #30 tab 24 Sertraline [Zoloft] 50 mg PO DAILY 30 Days #30 tab 06/17/24 hydrOXYzine pamoate [Vistaril] 50 mg PO HS 30 Days #60 cap 06/17/24 Allergies Allergy/AdvReac Type Severity Reaction Status Date / Time No Known Allergies Allergy Verified 06/10/24 07:38 Review of Systems ROS Statement: Those systems with pertinent positive or pertinent negative responses have been documented in the HPI. ROS Other: All systems not noted in ROS Statement are negative. Past Medical History Past Medical History: No Reported History History of Any Multi-Drug Resistant Organisms: None Reported Past Surgical History: Orthopedic Surgery Additional Past Surgical History / Comment(s): rt knee surgery Past Anesthesia/Blood Transfusion Reactions: No Reported Reaction Past Psychological History: Anxiety, Depression Past Alcohol Use History: None Reported Past Drug Use History: None Reported General Exam - General Exam Comments Initial Comments: GENERAL: Patient is well-developed and well-nourished. Patient is nontoxic and well-h ydrated and is in no acute distress. ENT: Neck is soft and supple. No significant lymphadenopathy is noted. Oropharynx is clear. Moist mucous membranes. Neck has full range of motion without elic iting any pain. EYES: The sclera were anicteric and conjunctiva were pink and moist. Extraocular movements were intact and pupils were equal round and reactive to light. Eyelids were unremarkable. PULMONARY: Unlabored respirations. Good breath sounds bilaterally. No audible rales rhonchi or wheezing was noted. CARDIOVASCULAR: There is a regular rate and rhythm without any murmurs gallops or rubs. ABDOMEN: Soft and nontender with normal bowel sounds. SKIN: Abrasion scalp superior aspect. Patient has a slight abrasion on his third knuckle of his right hand NEUROLOGIC: Patient is alert and oriented unable to assess as he refuses to answer any questions. Cranial nerves II through XII are grossly intact. Motor and sensory are also intact. Normal speech, volume and content. Symmetrical smile. MUSCULOSKELETAL: Normal extremities with adequate strength and full range of motion. No lower extremity swelling or edema. No calf tenderness. LYMPHATICS: No significant lymphadenopathy is noted PSYCHIATRIC: Patient is uncooperative Course Vital Signs 12/23/24 12/23/24 08:47 10:14 Temperature 98.8 F Pulse Rate 145 H 104 H Respiratory 20 18 Rate Blood Pressure 148/63 121/74 O2 Sat by Pulse 92 L 95 Oximetry Procedures - Restraint - Face to Face Restraint Occurrence 1 Patient's Immediate Situation: Endangers self safety, Endangers others' safety, Endangers staff safety, Violent behavior Patient's Reaction to the Intervention: Uncooperative, Hostile, Belligerent, Aggressive, Combative Patient's Medical & Behavioral Condition: Awake, Alert Need to Continue or Terminate Restraint or Seclusion: Continue Face to Face Eval of Restraint Date: 12/23/24 Face to Face Eval of Restraint Time: 08:41 Medical Decision Making - Medical Decision Making Was pt. sent in by a medical professional or institution (, PA, CONDENSER SETTER, urgent care, hospital, or [place] health [place] facility...) When possible be specific @ -No Did you speak to anyone other than the patient for history (EMS, parent, family, police, friend...)? What history was obtained from this source @ -No Did you review nursing and triage notes (agree or disagree)? Why? @ -I reviewed and agree with nursing and triage notes Were old charts reviewed (outside hosp., previous admission, EMS record, old EKG, old radiological studies, urgent care reports/EKG's, [place] health [place] records)? Report findings @ -No old charts were reviewed Differential Diagnosis? @ -Differential Mental Health Depression, anxiety, bipolar, psychosis, schizophrenia, borderline personality, situational depression, adjustment disorder, behavioral disorder, brain tumor, malingering, substance abuse, encephalopathy, medication reaction, dementia, hypothyroidism, degenerative neurologic disorder, lupus.... This is not meant to be all-inclusive list EKG interpreted by me (3pts min.). @ -As above X-rays interpreted by me (1pt min.). @ -None done CT interpreted by me (1pt min.). @ -None done U/S interpreted by me (1pt. min.). @ -None done What testing was considered but not performed or refused? (CT, X-rays, U/S, labs)? Why? @ -None What meds were considered but not given or refused? Why? @ -None Did you discuss the management of the patient with other professionals (professionals i.e. , PA, CONDENSER SETTER, lab, RT, psych nurse, aids social worker, casework supervisor, teacher, commanding officer garage, rn case management)? Give summary @ -I spoke to EPS about the case. It was determined the patient need to be admitted Was smoking cessation discussed for >3mins.? @ -No Was critical care preformed (if so, how long)? @ -No Were there social determinants of health that impacted care today? How? (Homelessness, low income, unemployed, alcoholism, drug addiction, transportation, low edu. Level, literacy, decrease access to med. care, nursing home, rehab)? @ -No Was there de-escalation of care discussed even if they declined (Discuss DNR or withdrawal of care, Hospice)? DNR status @ -No What co-morbidities impacted this encounter? (DM, HTN, Smoking, COPD, CAD, Cancer, CVA, ARF, Chemo, Hep., AIDS, mental health diagnosis, sleep apnea, morbid obesity)? @ -None Was patient admitted / discharged? Hospital course, mention meds given and route, prescriptions, significant lab abnormalities, going to OR and other pertinent info. @ -Patient gave me no history at all I got all of my history from the police officers. Patient was evaluated by EPS and it was determined the patient need to be admitted. Undiagnosed new problem with uncertain prognosis? @ -No Drug Therapy requiring intensive monitoring for toxicity (Heparin, Nitro, Insulin, Cardizem)? @ -No Were any procedures done? @ -No Diagnosis/symptom? @ -Depression, suicidal ideations Acute, or Chronic, or Acute on Chronic? @ -Acute Uncomplicated (without systemic symptoms) or Complicated (systemic symptoms)? @ -Complicated Side effects of treatment? @ -No Exacerbation, Progression, or Severe Exacerbation? @ -No Poses a threat to life or bodily function? How? (Chest pain, [place], [place], pneumonia, PE, COPD, DKA, ARF, appy, cholecystitis, CVA, Diverticulitis, Homicidal, Suicidal, threat to staff... and all critical care pts) @ -Yes if not admitted he may attempt to harm himself - Lab Data Lab Results 12/23/24 Range/Units 08:56 Serum Alcohol <10 mg/dL Disposition Clinical Impression: Depression, Suicidal ideation Disposition: ADMITTED IP TO THIS HOSP Referrals: Katarina Osuna MD [Primary Care Provider] - 1-2 days Time of Disposition: 10:37
--- NOTE | 2024-12-23 10:52 | XR ---
EXAMINATION TYPE: XR shoulder complete LT DATE OF EXAM: 12/23/2024 10:37 AM COMPARISON: None. CLINICAL INDICATION: Male, 29 years old with history of Trauma, pain TECHNIQUE: XR shoulder complete LT views were obtained FINDINGS: There is no acute fracture/dislocation evident. The acromioclavicular and glenohumeral joint spaces appear within normal limits. The visualized ribs are intact and unremarkable. IMPRESSION: There is no acute fracture or dislocation. [facility], , 12/23/2024 10:50 AM
[2024-12-23 11:26] LABS: RSV Not Detected (Not Detectd)
[2024-12-23] MEDS ORDERED: LORazepam 1 MG TAB PO PRN (13:47)
[2024-12-23] MEDS ORDERED: MAGNESIUM HYDROXIDE 2,400 MG/30 ML CUP PO PRN (13:47)
[2024-12-23] MEDS ORDERED: MAG HYDROX/AL HYDROX/SIMETH 355 ML BOTTLE PO PRN (13:47)
[2024-12-23] MEDS ORDERED: HALOPERIDOL LACTATE 5 MG/ML 1 ML VIAL IM PRN (13:47)
[2024-12-23] MEDS: ACETAMINOPHEN TAB 325 MG TAB PO PRN (14:03)
[2024-12-23] MEDS: IBUPROFEN 600 MG TAB PO PRN (18:13)
[2024-12-23 23:53] LABS: Amorphous Sediment,Urine Moderate /hpf; Bacteria,Urine Rare /hpf; Bilirubin,Urine Negative (Negative); Blood,Urine Negative (Negative); Budding Yeast,Urine Rare /hpf; Color,Urine Light Orange; Glucose,Urine (UA) Negative (Negative); Ketones,Urine 1+ (Negative); Leukocyte Esterase,Urine Negative (Negative); Mucus,Urine Many /hpf; Nitrite,Urine Negative (Negative); PH, Urine 5.5 (5.0-8.0); Protein,Urine Trace (Negative); RBC,Urine 2 /hpf (0-5); Specific Gravity,Urine 1.039 (1.001-1.035); Squamous Epithelial Cell,Urine 2 /hpf (0-4); Urobilinogen,Urine 2.0 mg/dL (<2.0); WBC,Urine 2 /hpf (0-5)
[2024-12-24 00:04] LABS: Barbiturate Screen,Urine Not Detected (NotDetected); Benzodiazepines Screen,Urine Not Detected (NotDetected); Opiate Screen,Urine Not Detected (NotDetected); Oxycodone Screen, Urine Not Detected (NotDetected); Phencyclidine Screen,Urine Not Detected (NotDetected); Tricyclic Antidepressant,Urine Not Detected (NotDetected); Urn Cannabinoid Scrn Not Detected (NotDetected)
[2024-12-24] MEDS: NICOTINE 14MG/24HR PATCH TRANSDERM SCH (09:38)
[2024-12-24] MEDS: PANTOPRAZOLE 40 MG TABLET PO SCH (09:38)
[2024-12-24 11:19] LABS: Basophils # (A) 0.06 10*3/uL (0.00-0.10); Basophils % (A) 0.9 %; Eosinophils # (A) 0.16 10*3/uL (0.04-0.35); Eosinophils % (A) 2.4 %; HCT 47.5 % (39.6-50.0); HGB 16.3 g/dL (13.0-17.0); Lymphocytes # (A) 1.66 10*3/uL (0.90-5.00); Lymphocytes % (A) 24.5 %; MCH 31.2 pg (27.0-32.0); MCHC 34.3 g/dL (32.0-37.0); MCV 91.0 fL (80.0-97.0); Monocytes # (A) 0.50 10*3/uL (0.20-1.00); Monocytes % (A) 7.4 %; Neutrophils # (A) 4.37 10*3/uL (1.80-7.70); Neutrophils % (A) 64.5 %; Platelet Count 211 10*3/uL (140-440); RBC 5.22 10*6/uL (4.40-5.60); RDW 12.0 % (11.5-14.5); WBC 6.77 10*3/uL (4.50-10.00)
[2024-12-24 11:47] LABS: ALT 31 U/L (4-49); AST 65 U/L (17-59); African American GFR (CKD) >90 (>60 ml/min/1.73 sqM); Albumin 4.6 g/dL (3.5-5.0); Alkaline Phosphatase 62 U/L (38-126); Anion Gap 12 mmol/L; Blood Urea Nitrogen 10 mg/dL (9-20); Calcium 9.4 mg/dL (8.4-10.2); Carbon Dioxide 25 mmol/L (22-30); Chloride 103 mmol/L (98-107); Glucose 86 mg/dL (74-99); Non-African American GFR(CKD) >90 (>60 ml/min/1.73 sqM); Potassium 4.2 mmol/L (3.5-5.1); Sodium 140 mmol/L (137-145); Total Protein 7.2 g/dL (6.3-8.2)
[2024-12-24] MEDS: SERTRALINE 50 MG TAB PO SCH (11:55)
--- NOTE | 2024-12-24 12:40 | P.HP ---
Psychiatric H&P - . H&P Date: 12/24/24 History & Physical: Allergies Allergy/AdvReac Type Severity Reaction Status Date / Time gluten Allergy Nausea & Verified 12/23/24 22:44 Vomiting & Diarrhea Milk Containing Products Allergy Nausea & Verified 12/23/24 22:44 (Dairy) Vomiting & Dairy Diarrhea Vital Signs Temp 97.6 F 12/24/24 09:00 Pulse 88 12/24/24 09:00 Resp 18 12/23/24 23:24 BP 107/67 12/24/24 09:00 Pulse Ox 97 12/24/24 09:00 FiO2 Intake & Output 12/23/24 12/24/24 12/24/24 18:59 06:59 18:59 Weight 69.853 kg Laboratory Last Values WBC 6.77 10*3/uL (4.50-10.00) 12/24/24 10:36 RBC 5.22 10*6/uL (4.40-5.60) 12/24/24 10:36 Hgb 16.3 g/dL (13.0-17.0) 12/24/24 10:36 Hct 47.5 % (39.6-50.0) 12/24/24 10:36 MCV 91.0 fL (80.0-97.0) 12/24/24 10:36 MCH 31.2 pg (27.0-32.0) 12/24/24 10:36 MCHC 34.3 g/dL (32.0-37.0) 12/24/24 10:36 Plt Count 211 10*3/uL (140-440) 12/24/24 10:36 MPV 10.2 fL (9.5-12.2) 12/24/24 10:36 Immature Gran % (Auto) 0.3 % 12/24/24 10:36 Neutrophils % 64.5 % 12/24/24 10:36 Lymphocytes % 24.5 % 12/24/24 10:36 Monocytes % 7.4 % 12/24/24 10:36 Eosinophils % 2.4 % 12/24/24 10:36 Basophils % 0.9 % 12/24/24 10:36 Immature Gran # 0.02 10*3/uL (0.00-0.04) 12/24/24 10:36 Neutrophils # 4.37 10*3/uL (1.80-7.70) 12/24/24 10:36 Lymphocytes # 1.66 10*3/uL (0.90-5.00) 12/24/24 10:36 Monocytes # 0.50 10*3/uL (0.20-1.00) 12/24/24 10:36 Eosinophils # 0.16 10*3/uL (0.04-0.35) 12/24/24 10:36 Basophils # 0.06 10*3/uL (0.00-0.10) 12/24/24 10:36 Sodium 140 mmol/L (137-145) 12/24/24 10:36 Potassium 4.2 mmol/L (3.5-5.1) 12/24/24 10:36 Chloride 103 mmol/L (98-107) 12/24/24 10:36 Carbon Dioxide 25 mmol/L (22-30) 12/24/24 10:36 Anion Gap 12 mmol/L 12/24/24 10:36 BUN 10 mg/dL (9-20) 12/24/24 10:36 Creatinine 0.77 mg/dL (0.66-1.25) 12/24/24 10:36 Est GFR (CKD-EPI)AfAm >90 (>60 ml/min/1.73 sqM) 12/24/24 10:36 Est GFR (CKD-EPI)NonAf >90 (>60 ml/min/1.73 sqM) 12/24/24 10:36 Glucose 86 mg/dL (74-99) 12/24/24 10:36 Calcium 9.4 mg/dL (8.4-10.2) 12/24/24 10:36 Total Bilirubin 1.1 mg/dL (0.2-1.3) 12/24/24 10:36 AST 65 U/L (17-59) H 12/24/24 10:36 ALT 31 U/L (4-49) 12/24/24 10:36 Alkaline Phosphatase 62 U/L (38-126) 12/24/24 10:36 Total Protein 7.2 g/dL (6.3-8.2) 12/24/24 10:36 Albumin 4.6 g/dL (3.5-5.0) 12/24/24 10:36 TSH 0.579 mIU/L (0.465-4.680) 12/24/24 10:36 Urine Color Light [place] 12/23/24 22:11 Urine Appearance Turbid (Clear) 12/23/24 22:11 Urine pH 5.5 (5.0-8.0) 12/23/24 22:11 Ur Specific Industry 1.039 (1.001-1.035) H 12/23/24 22:11 Urine Protein Trace (Negative) H 12/23/24 22:11 Urine Glucose (UA) Negative (Negative) 12/23/24 22:11 Urine Ketones 1+ (Negative) H 12/23/24 22:11 Urine Blood Negative (Negative) 12/23/24 22:11 Urine Nitrite Negative (Negative) 12/23/24 22:11 Urine Bilirubin Negative (Negative) 12/23/24 22:11 Urine Urobilinogen 2.0 mg/dL (<2.0) 12/23/24 22:11 Ur Leukocyte Esterase Negative (Negative) 12/23/24 22:11 Urine RBC 2 /hpf (0-5) 12/23/24 22:11 Urine WBC 2 /hpf (0-5) 12/23/24 22:11 Ur Squamous Epith Cells 2 /hpf (0-4) 12/23/24 22:11 Amorphous Sediment Moderate /hpf (None) H 12/23/24 22:11 Urine Bacteria Rare /hpf (None) H 12/23/24 22:11 Urine Mucus Many /hpf (None) H 12/23/24 22:11 Urine Yeast (Budding) Rare /hpf (None) H 12/23/24 22:11 Urine Opiates Screen Not Detected (NotDetected) 12/23/24 22:11 Ur Oxycodone Screen Not Detected (NotDetected) 12/23/24 22:11 Urine Methadone Screen Not Detected (NotDetected) 12/23/24 22:11 Ur Barbiturates Screen Not Detected (NotDetected) 12/23/24 22:11 U Tricyclic Antidepress Not Detected (NotDetected) 12/23/24 22:11 Ur Phencyclidine Scrn Not Detected (NotDetected) 12/23/24 22:11 Ur Amphetamines Screen Not Detected (NotDetected) 12/23/24 22:11 U Methamphetamines Scrn Not Detected (NotDetected) 12/23/24 22:11 U Benzodiazepines Scrn Not Detected (NotDetected) 12/23/24 22:11 Urine Cocaine Screen Not Detected (NotDetected) 12/23/24 22:11 U Marijuana (THC) Screen Not Detected (NotDetected) 12/23/24 22:11 Serum Alcohol <10 mg/dL 12/23/24 08:56 Influenza Type A (PCR) Not Detected (Not Detectd) 12/23/24 10:36 Influenza Type B (PCR) Not Detected (Not Detectd) 12/23/24 10:36 RSV (PCR) Not Detected (Not Detectd) 12/23/24 10:36 SARS-CoV-2 (PCR) Not Detected (Not Detectd) 12/23/24 10:36 12/24/24 12:25 IDENTIFYING DATA: Patient is a 29-year-old male, living with parents, on disability CHIEF COMPLAINT: Agitation, combativeness HPI: Patient presented to the hospital with agitation, suicidal ideations and homicidal ideations. Per EPS, "Jerardo had calmed down from previous combative presentation to the ED that required [facility],and [facility] deputies to be present. Jerardo remained in restraints with a spit shield due to their agression. Clinician observed jerardo fighting with police and ED staff as well as attempting to flip be over numerous times. Jerardo was PET by [facility] after being called to the family home due to an altercation between jerardo and their father. Once police were involved the situation escalated and jerardo punched out a window, made threats to harm self and others. PET states " Gerhard was highly combative, he punched through a window. Gerhard was accused of stealing money by his father. I had to step in between the two as a fight was about to take place. Gerhard made statements he would kill himself, he stated he would kill professor of biostatistics, nurses, other people." Collateral obtained from Jerardo's parents revealed that Jerardo is on SSI and father is the payee. Father reports leaving the "debit" card on the computer desk and Gerhard had taken it to " spend some money on himself." Per the father/payee Jerardo has been sending money via gift cards to an unknown individual on line for the last 2 months. Father reports $300 one month and $400 the next. " he has no idea who this person is or has met them in person." Father reports confronting Cl about it which is what began the argument. Both parents indicate additional complex issues within the home as well as high emotional intensity. Cl is intellectually compromised as a result of complications at . Parents believe it was lack of oxygen but mother reports it was never "documented properly." Cl lives with family and has struggled to sustain employement. Dynamics within the family are related to psycho social stressors. Cl reports " I took money with out asking and that caused an argument. Then my Dad called the professor of biostatistics on me, and they showed up." Cl reports depression increasing since September 2024, feels useless, low frustration tolerance, labile w emotions, verbal threats, SI w "a bunch of possbile plans", reporting auditory pastora of relatives, some they have never met. self reported trust issues, and paranoid ideation that they are being followed and watched. Cl also admits to talking to themselves "often". Cl states " I don't tell my Mom or Dad how I am really feeling, I just say I am fine." Per father (also intellectually compromised) " He believes that his mother doesn't love him and only cares about the money and his sister,her grandkids, and sig other." Father indicates " Me an Gerhard have been under more stress because the sisters boyfriend is living with us rent free." Cl's mother was tearful and blaming herself refering to herself as a failure. Clinician spent time walking back statements that both parents made and provided guidance on acknowledging the cl is an adult man making choices. Clincian valitdated the complex issues within the home as well as high emotional intensity. Cl is unemployed w recent job loss on SSI. Judgement/Insight/Impulse control: poor ADLS's: good sleep/hoda: good Medical issues: none reported. No TBI hx , No seizure concerns. Medications: Cl would not recall names or doses of medications. Hx of MH tx: Open w [facility], when asked about [facility] cl stated " Yea I've been there, I don't trust any of them." Hx of in pat: 1x [facility] 05/2024. Hx of JUAN CARLOS: none reported. BAT/Serum:0.0 UDS: pending Fam hx: none reported. Both parents show signs of being intellectually compromised. Hx of trauma: Cl reports ment,emo, verb,phys from Father " A long time ago but we made up" Hx of self harm: banging head, injuring self. Hx of legal: none current." Patient seen and evaluated on the unit and was agreeable with speaking to manual writer in the lounge privately. He states being mishandled by the police after they were called due to him having an altercation with his father due to his father disagreeing with how he is spending his money. Patient states he is on disability and that his father became upset after he spent this money on himself without talking to him first. Patient expresses remorse with his actions and treatment towards his father, admitting to acting poorly and states that he did speak to his father last night and they are working on communicating better. He states because of the police handling, he is reporting head and shoulder pain, back pain with dizziness while standing. He was encouraged to hydrate and was provided an ice pack. Shoulder x-ray did not reveal any acute changes. He does admit to mood swings, auditory hallucinations described as hearing his grandparents at times, denying any sleep or appetite difficulties, poor concentration or anhedonia. He claims to be adherent with his medications and takes them daily. Patient denies any suicidal or homicidal ideations intent or plan. At this time patient denies any auditory or visual hallucinations. Patient denies any flight of ideas racing thoughts and increased in goal directed behavior. Patient admits to using alcohol occasionally. PAST PSYCHIATRIC HISTORY: Patient has a history of MDD, LEDA, PTSD, cognitive delay. Patient is currently on Zoloft 150 mg daily, ramelteon 8 mg at bedtime, Invega 1.5 mg daily, trazodone 50 mg as needed at bedtime. He sees prescriber Josh at [facility]. Patient has 2 previous inpatient hospitalizations, last on the [facility] in 05/2024. Patient reports 1 remote suicide attempt via cutting in the eighth grade PMH: as per ER note ALLERGIES: as per EMR SUBSTANCE USE HISTORY: As per HPI FAMILY PSYCHIATRIC/SUBSTANCE USE HISTORY: Patient states his mother has depressi on and attempted suicide previously SOCIAL HISTORY: Patient was born and raised in [place]. He lives with his parents and one of his sister and her boyfriend. He is unemployed on SSD. He is single and has no children. He completed high school and was in special education classes. MENTAL STATUS EXAM: General Appearance: Patient appears to be slightly younger than stated age is alert, directable, and attempts to cooperate. Patient appears to have fair hygiene and grooming. Behavior: Patient is seated without any agitated behavior. There is evidence of mild restlessness Speech: Patient's speech is fluent and nonpressured. Mood/Affect: Patient reports their mood is "okay", affect is congruent and constricted. Suicidality/Homicidality: Patient denies having any homicidal ideation intent or plan. Denies any suicidal ideations intent or plan Perceptions: Patient denies any visual hallucinations and denies any auditory hallucinations Though content/process: There is no evidence of any delusional thought content and thought process is linear and goal-directed. Memory and concentration: AOX3, grossly intact for the purposes of this session. Can spell "WORLD" backwards Judgment and insight: Poor STRENGTHS/WEAKNESSES: strength is that patient is resilient and has family support. Weakness is that patient has poor judgment, low frustration tolerance and is impulsive INTELLECT: Below average IMPRESSIONS: Schizoaffective disorder, bipolar type Intellectual disability Generalized anxiety disorder PTSD PLAN: -Patient is admitted under voluntary status to [facility] for stabilization of psychiatric symptoms and safety. Patient has signed adult voluntary form and and is placed in patient's chart. -Medications : Increase Invega to 6 mg at bedtime for psychosis/mood stabilization, resume Zoloft 150 mg daily for depression/anxiety, melatonin 10 mg at bedtime for insomnia, trazodone 50 mg as needed at bedtime for insomnia - Ativan and Haldol PRN for agitation/aggression -Patient was informed of the risks, benefits and side effects of the medication and patient verbally consented to taking the medications. Patient signed med consent form and was placed in chart. Patient offered and declined patient education sheet for psychotropic medications. -Internal Medicine consult to perform medical evaluation and physical. -NRT -not needed as patient does not smoke -SW on board for discharge planning. Encourage patient to participate in groups to work on coping skills.
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
--- NOTE | 2024-12-24 14:10 | XR ---
EXAMINATION TYPE: XR lumbar spine 2 or 3V DATE OF EXAM: 12/24/2024 CLINICAL HISTORY: pain TECHNIQUE: Three views of the lumbar spine are submitted. COMPARISON: Lumbosacral spine radiograph 06/19/2017, MR T-spine/L-spine 10/05/2017 FINDINGS: There are 5 lumbar type vertebral bodies identified. The lumbar spine shows satisfactory alignment w ithout evidence of acute fracture or dislocation. Vertebral body heights are within normal limits. Disc spaces are within normal limits. The overlying soft tissue appears unremarkable. IMPRESSION: 1. No acute fracture or dislocation is seen in the lumbar spine. 2. No significant degenerative disc disease of the lumbar spine. [facility], , 12/24/2024 2:07 PM
[2024-12-24 15:33] LABS: Cholesterol 163.00 mg/dL (0.00-200.00); HDL Cholesterol 46.40 mg/dL (40.00-60.00); LDL Cholesterol,Calculated 107.4 mg/dL (0.0-131.0); Triglycerides 46.00 mg/dL (0.00-149.00); VLDL Calculation 9.20 mg/dL (5.00-40.00)
[2024-12-24] MEDS: PALIPERIDONE 6 MG TAB.ER.24 PO SCH (21:54)
[2024-12-24] MEDS: MELATONIN 5 MG TABLET PO SCH (21:54)
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
[2024-12-25] MEDS: PALIPERIDONE IM 234 MG/1.5 ML SYG IM ONE (13:59)
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
[2024-12-28 09:53] VITALS: RESP 16
--- NOTE | 2024-12-28 10:01 | P.PN ---
Progress Note - Text Progress Note Date: 12/28/24 Chief complaint: Ruminating about trauma Interval History: Patient was seen in his room lying in bed he was easily awake able and was directable and agreeable to speak with financial underwriter in the office. The patient notes no changes from yesterday. He notes that he has no depression or anxiety. He denies any suicidal or homicidal thoughts. He notes that he is not having any problems with auditory or visual hallucinations. He notes that he is not paranoid. He notes that he slept 7.5 hours last night. He does note some elevated energy. He notes that his appetite and concentration is baseline. He notes that he went to groups yesterday just is here with they had to say. Mental Status Exam: General Appearance: Patient appears to be stated age is alert, directable, and cooperative. Behavior: Patient is calmly seated without any agitated behavior. Speech: Patient's speech is fluent and nonpressured. Mood/Affect: Mood is improving mildly, affect is congruent and constricted. Suicidality/Homicidality: Patient denies having any suicidal or homicidal ideation intent or plan. Perceptions: Patient denies any visual hallucinations and denies any auditory hallucinations Though content/process: There is no evidence of any delusional thought content and thought process is linear and goal-directed. Memory and concentration: AOX3, grossly intact for the purposes of this session Judgment and insight: Improving mildly Diagnosis: Schizoaffective disorder, bipolar type Intellectual disability Generalized anxiety disorder PTSD Assessment: Anticipated discharge either Sunday or Sunday patient is stabilized and will get his second shot today. Plan: -Patient continues to meet criteria for inpatient psychiatric admission for symptom stabilization and safety. Patient has signed adult voluntary form and medication consent and was placed in patient's chart. -Medications: Given Invega Sustenna 234 mg IM to be given today with a second loading dose of 156 mg IM will be given second shot 12/28/24 Continue Oral Invega 6 mg at bedtime in the interim Zoloft 150 mg daily for depression/anxiety Melatonin 10 mg at bedtime for insomnia Trazodone 50 mg as needed at bedtime for insomnia -When necessary Ativan and Haldol for agitation/aggression. -Labs: Reviewed, WNL. Lumbar spine x-ray revealed no acute fractures or dislocations -SW on board for discharge planning. Encouraged the patient to participate in milieu. Anticipate discharge on Sunday, home with parents
[2024-12-28] MEDS: PALIPERIDONE IM 156 MG/ML SYG IM ONE (14:24)
[2024-12-29 10:15] VITALS: BP 110/73; PULSE 143; TEMP 98
--- NOTE | 2024-12-29 10:50 | P.DS ---
Providers Date of admission: 12/23/24 13:44 Admission HPI: Admission note was completed by [telegraphic typewriter mechanic] "Patient presented to the hospital with agitation, suicidal ideations and homicidal ideations. Per EPS, "Cl had calmed down from previous combative presentation to the ED that required [facility],and [facility] deputies to be present. Cl remained in restraints with a spit shield due to their agression. Clinician observed cl fighting with police and ED staff as well as attempting to flip be over numerous times. Jerardo was PET by [facility] Amina Yarbrough after being called to the family home due to an altercation between jerardo and their father. Once police were involved the situation escalated and jerardo punched out a window, made threats to harm self and others. PET states " Gerhard was highly combative, he punched through a window. Gerhard was accused of stealing money by his father. I had to step in between the two as a fight was about to take place. Gerhard made statements he would kill himself, he stated he would kill industrial specialist, nurses, other people." Collateral obtained from Jerardo's parents revealed that Jerardo is on SSI and father is the payee. Father reports leaving the "debit" card on the computer desk and Gerhard had taken it to " spend some money on himself." Per the father/payee Jerardo has been sending money via gift cards to an unknown individual on line for the last 2 months. Father reports $300 one month and $400 the next. " he has no idea who this person is or has met them in person." Father reports confronting Jerardo about it which is what began the argument. Both parents indicate additional complex issues within the home as well as high emotional intensity. Jerardo is intellectually compromised as a result of complications at . Parents believe it was lack of oxygen but mother reports it was never "documented properly." Jerardo lives with family and has struggled to sustain employement. Dynamics within the family are related to psycho social stressors. Cl reports " I took money with out asking and that caused an argument. Then my Dad called the industrial specialist on me, and they showed up." Jerardo reports depression increasing since September 2024, feels useless, low frustration tolerance, labile w emotions, verbal threats, SI w "a bunch of possbile plans", reporting auditory pastora of relatives, some they have never met. self reported trust issues, and paranoid ideation that they are being followed and watched. Cl also admits to talking to themselves "often". Cl states " I don't tell my Mom or Dad how I am really feeling, I just say I am fine." Per father (also intellectually compromised) " He believes that his mother doesn't love him and only cares about the money and his sister,her grandkids, and sig other." Father indicates " Me an Gerhard have been under more stress because the sisters boyfriend is living with us rent free." Cl's mother was tearful and blaming herself refering to herself as a failure. Clinician spent time walking back statements that both parents made and provided guidance on acknowledging the cl is an adult man making choices. Clincian valitdated the complex issues within the home as well as high emotional intensity. Cl is unemployed w recent job loss on SSI. Judgement/Insight/Impulse control: poor ADLS's: good sleep/hoda: good Medical issues: none reported. No TBI hx , No seizure concerns. Medications: Cl would not recall names or doses of medications. Hx of MH tx: Open w [facility], when asked about [facility] cl stated " Yea I've been there, I don't trust any of them." Hx of in pat: 1x [facility] 05/2024. Hx of JUAN CARLOS: none reported. BAT/Serum:0.0 UDS: pending Fam hx: none reported. Both parents show signs of being intellectually compromised. Hx of trauma: Cl reports ment,emo, verb,phys from Father " A long time ago but we made up" Hx of self harm: banging head, injuring self. Hx of legal: none current." Patient seen and evaluated on the unit and was agreeable with speaking to telegraphic typewriter mechanic in the lounge privately. He states being mishandled by the police after they were called due to him having an altercation with his father due to his father disagreeing with how he is spending his money. Patient states he is on disability and that his father became upset after he spent this money on himself without talking to him first. Patient expresses remorse with his actions and treatment towards his father, admitting to acting poorly and states that he did speak to his father last night and they are working on communicating better. He states because of the police handling, he is reporting head and shoulder pain, back pain with dizziness while standing. He was encouraged to hydrate and was provided an ice pack. Shoulder x-ray did not reveal any acute changes. He does admit to mood swings, auditory hallucinations described as hearing his grandparents at times, denying any sleep or appetite difficulties, poor concentration or anhedonia. He claims to be adherent with his medications and takes them daily. Patient denies any suicidal or homicidal ideations intent or plan. At this time patient denies any auditory or visual hallucinations. Patient denies any flight of ideas racing thoughts and increased in goal directed behavior. Patient admits to using alcohol occasionally." Hospital course: Upon admission to the unit patient was directable and agreeable to commence treatment and signed adult voluntary form admitted involuntarily on a petition and certificate and a second certificate was completed and faxed to the courts. Patient got along well with other patients on the unit and followed unit jaydono l. Patient was compliant with the medications and denied any side effects throughout hospital course. Patient was started on Invega, Zoloft, Trazodone. The patient additionally received Invega long-acting injections. Patient spoke of his stressors and engaged in therapy both group and individual. Patient was also seen by medical team for history and physical exam. Throughout the course of the hospitalization patient gradually improved with regards to mood, anxiety, sleep and returned back to their baseline level of functioning became more future oriented with improved insight and judgment. On the day of discharge patient denied any suicidal or homicidal ideations intent or plan denied any auditory or visual hallucinations. Patient endorsed wanting to live for their health and family. The patient denied any access to guns or weapons. Patient denied any paranoia and did not endorse any delusions. Patient does not have a significant history of substance abuse. Patient was also counseled on the medications and need for regular compliance and was encouraged to follow-up with their outpatient appointment for mental health and also for primary care. Prior to discharge a family meeting will be arranged by director social welfare to answer any questions and ensure safety upon discharge incuding making sure that guns/weapons are either removed from the home or locked away. Day of discharge patient denied any psychotic symptoms. He notes that he is not depressed or anxious. He notes that his sleep, energy, appetite and concentration are normal. He denied any suicidal or homicidal ideations and voiced a safety plan of [phone] and [phone]. Mental status exam: General Appearance: Patient appears to be his stated age is alert, pleasant, and cooperative. Patient is in no acute distress and has improved hygiene and grooming Behavior: Patient is calmly seated without any agitated behavior. Speech: Patient's speech is fluent and nonpressured. Mood/Affect: Patient reports their mood is "better good", affect is congruent and euthymic. Suicidality/Homicidality: Patient denies having any suicidal or homicidal ideation intent or plan. Perceptions: Patient denies any auditory or visual hallucinations. Though content/process: There is no evidence of any delusional thought content and thought process is linear and goal-directed. More future oriented Memory and concentration: AOX3, grossly intact for the purposes of this session. Can spell "WORLD" backwards correctly. Judgment and insight: Chronically poor, however has improved with guarded prognosis Diagnosis: Schizoaffective disorder, bipolar type Intellectual disability Generalized anxiety disorder PTSD Plan: -Continue with discharge today as patient has improved and stabilized psychiatrically and is not currently an imminent threat to themself and/or others. Patient will remain at chronically elevated risk for harm to self and/or others due to their impulsivity. -Continue medications: Invega Sustenna 234 mg IM to be given today with a second loading dose of 156 mg IM will be given second shot 12/28/24 next injection due on 01/26/2025 Continue Zoloft 150 mg daily for depression/anxiety Melatonin 10 mg at bedtime for insomnia Trazodone 50 mg as needed at bedtime for insomnia -Patient was counseled on the need for medication compliance and appropriate follow-up at mental health and also primary care for medical issues. Patient verbalized understanding and agreed. -Social work to help coordinate patients discharge today arrange for and conduct family meeting to ensure safety upon discharge and answer any questions/concerns. also to ensure safe home environment that guns/weapons are either removed from the home or locked away. Social work also to arrange for patients follow up appointments with [facility] for psychiatric care along with follow up with primary care provider. -Patient counseled on abstaining from recreational drugs and marijuana and alcohol. Was informed/educated on the adverse effects on their physical and mental health. Patient verbally agreed and understood. -Patient was instructed to return to the hospital or seek immediate medical care if their psychiatric or medical symptoms do worsen or reoccur. Expected date of discharge: 12/29/24 Attending physician: Tea Smalls MD Consults: 12/23/24 13:47 Consult Physician Routine Consulting Provider: [facility] Consult Reason/Comments: H&P and medical Do you want consulting provider notified?: Yes Primary care physician: Katarina Osuna - Discharge Diagnosis(es) (1) Suicidal ideation Current Visit: Yes Status: Resolved Priority: Low (2) Generalized anxiety disorder Current Visit: No Status: Chronic Priority: Medium (3) Major depressive disorder, recurrent Current Visit: No Status: Chronic Priority: Medium (4) PTSD (post-traumatic stress disorder) Current Visit: No Status: Chronic Priority: Medium Patient Condition at Discharge: Good Plan - Discharge Summary Discharge Rx Participant: No New Discharge Prescriptions: No Action traZODone HCL [Desyrel] 50 mg PO HS PRN PRN Reason: Insomnia Paliperidone [Paliperidone ER] 1.5 mg PO HS Sertraline [Zoloft] 150 mg PO DAILY Omeprazole [PriLOSEC] 20 mg PO DAILY Ramelteon 8 mg PO HS PRN PRN Reason: Insomnia Discharge Medication List Omeprazole [PriLOSEC] 20 mg PO DAILY 12/23/24 [History] Paliperidone [Paliperidone ER] 1.5 mg PO HS 12/23/24 [History] Ramelteon 8 mg PO HS PRN 12/23/24 [History] Sertraline [Zoloft] 150 mg PO DAILY 12/23/24 [History] traZODone HCL [Desyrel] 50 mg PO HS PRN 12/23/24 [History] Follow up Appointment(s)/Referral(s): Katarina Osuna MD [Primary Care Provider] - 1-2 days Activity/Diet/Wound Care/Special Instructions: [facility] Discharge Info Avoid the use of street drugs and alcohol. Take all medications as prescribed. When you are in need of refills on your medications, please contact your outpatient medical provider and/or outpatient psychiatrist. Please go to your scheduled outpatient appointments for aftercare treatment. If symptoms return or become worse, call the crisis line at or and/or visit the nearest emergency room for assistance. National Suicide and Crisis Lifeline - call or text 480.
== END 2024-12-29 14:08 | disposition home or self-care (01) | DRG 885 ==
LOC: EC 08:40 → 3MHU 13:44
PROVIDERS: ADMIT Psychiatry & Neurology Psychiatry; ATTEND Psychiatry & Neurology Psychiatry
DX: F25.0 Schizoaffective disorder, bipolar type (principal); R45.850 Homicidal ideations; F33.9 Major depressive disorder, recurrent, unspecified; X78.0XXA Intentional self-harm by sharp glass, initial encounter; F41.1 Generalized anxiety disorder; F43.10 Post-traumatic stress disorder, unspecified; F79 Unspecified intellectual disabilities; G47.00 Insomnia, unspecified; Z56.0 Unemployment, unspecified; Z78.1 Physical restraint status; Z79.899 Other long term (current) drug therapy; Z81.8 Family history of other mental and behavioral disorders; M54.9 Dorsalgia, unspecified; M25.512 Pain in left shoulder
CPT/HCPCS: 36415; 72100; 80053; 80061; 80306; 80320; 81001; 83036; 84443; 85025; 87636